=== PATIENT | female | born 1955 | race Caucasian/White ===

== ENCOUNTER → 2019-11-23 | Outpatient (CLI) | payer MEDICARE | END | disposition home or self-care (01) | LOC: LABPAT 14:12 | PROVIDERS: ATTEND Orthopaedic Surgery Sports Medicine | DX: Z01.812 Encounter for preprocedural laboratory examination (principal) | CPT/HCPCS: 87070 ==

== ENCOUNTER → 2019-12-01 | Outpatient (CLI) | payer MEDICARE ==
[2019-12-01 15:03] LABS: HCT 45.5 % (34.0-46.0); HGB 14.9 gm/dL (11.4-16.0); MCH 30.4 pg (25.0-35.0); MCHC 32.8 g/dL (31.0-37.0); MCV 92.7 fL (80.0-100.0); Mean Platelet Volume 8.4; Platelet Count 253 k/uL (150-450); RBC 4.91 m/uL (3.80-5.40); RDW 12.5 % (11.5-15.5); WBC 8.1 k/uL (3.8-10.6)
[2019-12-01 15:12] LABS: Albumin 4.6 g/dL (3.5-5.0); Calcium 9.7 mg/dL (8.4-10.2); Potassium 4.3 mmol/L (3.5-5.1); Total Bilirubin 1.1 mg/dL (0.2-1.3); Total Protein 7.6 g/dL (6.3-8.2)
[2019-12-01 16:02] LABS: Partial Thromboplastin Time 23.7 sec (22.0-30.0); Prothrombin Time 10.2 sec (9.0-12.0)
[2019-12-01 19:49] LABS: Appearance,Urine Cloudy (Clear); Bacteria,Urine Rare /hpf; Bilirubin,Urine Negative (Negative); Blood,Urine Negative (Negative); Color,Urine Yellow; Glucose,Urine (UA) Negative (Negative); Ketones,Urine Negative (Negative); Leukocyte Esterase,Urine Small (Negative); Mucus,Urine Rare /hpf; Nitrite,Urine Negative (Negative); Protein,Urine Negative (Negative); Specific Gravity,Urine 1.012 (1.001-1.035); Squamous Epithelial Cell,Urine 6 /hpf (0-4); Urobilinogen,Urine <2.0 mg/dL (<2.0); WBC,Urine 1 /hpf (0-5)
== END | disposition home or self-care (01) ==
LOC: LABWHC1 14:20
PROVIDERS: ATTEND Orthopaedic Surgery Sports Medicine
DX: Z01.818 Encounter for other preprocedural examination (principal); Z01.812 Encounter for preprocedural laboratory examination; Z51.81 Encounter for therapeutic drug level monitoring; Z79.01 Long term (current) use of anticoagulants
CPT/HCPCS: 36415; 80053; 81001; 85027; 85610; 85730; 93005

== ENCOUNTER → 2020-07-24 | Outpatient (CLI) | payer MEDICARE ==
[2020-07-24 11:48] LABS: HGB 14.3 gm/dL (11.4-16.0); MCHC 32.4 g/dL (31.0-37.0); MCV 95.6 fL (80.0-100.0); Mean Platelet Volume 8.2; Platelet Count 270 k/uL (150-450); RDW 13.1 % (11.5-15.5); WBC 8.6 k/uL (3.8-10.6)
[2020-07-24 11:57] LABS: ALT 31 U/L (4-34); AST 36 U/L (14-36); African American GFR (CKD) >90 (>60 ml/min/1.73 sqM); Albumin 4.7 g/dL (3.5-5.0); Alkaline Phosphatase 88 U/L (38-126); Anion Gap 6 mmol/L; Blood Urea Nitrogen 16 mg/dL (7-17); Calcium 9.7 mg/dL (8.4-10.2); Carbon Dioxide 34 mmol/L (22-30); Chloride 100 mmol/L (98-107); Glucose 105 mg/dL (74-99); Non-African American GFR(CKD) 88 (>60 ml/min/1.73 sqM); Potassium 4.1 mmol/L (3.5-5.1); Sodium 140 mmol/L (137-145); Total Bilirubin 1.3 mg/dL (0.2-1.3); Total Protein 7.7 g/dL (6.3-8.2)
[2020-07-24 12:08] LABS: Appearance,Urine Cloudy (Clear); Bacteria,Urine Rare /hpf; Bilirubin,Urine Negative (Negative); Blood,Urine Negative (Negative); Color,Urine Light Yellow; Glucose,Urine (UA) Negative (Negative); Ketones,Urine Negative (Negative); Leukocyte Esterase,Urine Large (Negative); Mucus,Urine Rare /hpf; Nitrite,Urine Positive (Negative); PH, Urine 7.5 (5.0-8.0); Protein,Urine Negative (Negative); RBC,Urine 1 /hpf (0-5); Specific Gravity,Urine 1.013 (1.001-1.035); Squamous Epithelial Cell,Urine 5 /hpf (0-4); Urobilinogen,Urine <2.0 mg/dL (<2.0); WBC,Urine 23 /hpf (0-5)
[2020-07-24 12:19] LABS: Partial Thromboplastin Time 25.1 sec (22.0-30.0); Prothrombin Time 10.5 sec (9.0-12.0)
== END | disposition home or self-care (01) ==
LOC: LABPAT 09:58
PROVIDERS: ATTEND Orthopaedic Surgery Sports Medicine
DX: Z01.818 Encounter for other preprocedural examination (principal); Z01.812 Encounter for preprocedural laboratory examination
CPT/HCPCS: 80053; 81001; 85027; 85610; 85730; 87070; 93005

== ENCOUNTER 2020-08-08 23:21 | Observation (INO) | payer MEDICARE, OTHER ==
[2020-08-08] MEDS ORDERED: MORPHINE SULFATE 2 MG/ML SYRINGE IVP STA (23:36)
--- NOTE | 2020-08-08 23:47 | ED ---
Chest Pain HPI - General Chief Complaint: Chest Pain Stated Complaint: Chest Pain Time Seen by Provider: 08/08/20 23:30 Source: patient Mode of arrival: wheelchair Limitations: no limitations - History of Present Illness Initial Comments: this patient is a 65-year-old woman who presents to be evaluated for chest pain. She indicates the substernal area and states that it is also on her back across the scapula. Patient states that it came on about 90 minutes ago while she was sitting and watching television. There was no injury. She states that it is somewhat burning in character at times sharp. It is constant and moderate intensity. She has not noted worsening or relieving factors. No associated symptoms. MD Complaint: chest pain Onset/Timin -: minutes(s) Onset: during rest Pain Location: substernal Pain Radiation: back Severity: moderate Quality: other (burning) Consistency: constant Improves With: nothing Worsens With: nothing Treatments Prior to Arrival: none - Related Data Home Medications Medication Instructions Recorded Confirmed Cannabidiol (Cbd) [Epidiolex] 1 dose PO DIRECTED PRN 08/03/20 08/03/20 Citalopram Hydrobromide 20 mg PO DAILY 08/03/20 08/03/20 [Citalopram HBr] Ibuprofen 400 mg PO Q8H PRN 08/03/20 08/03/20 Omeprazole Magnesium [PriLOSEC OTC] 20 mg PO DIRECTED PRN 08/03/20 08/03/20 Pravastatin Sodium [Pravachol] 40 mg PO HS 08/03/20 08/03/20 Triamterene/Hydrochlorothiazid 1 each PO DAILY 08/03/20 08/03/20 [Triamterene-Hctz 75-50 mg Tab] amLODIPine [Norvasc] 5 mg PO DAILY 08/03/20 08/03/20 traMADol HCL [Ultram] 50 mg PO Q6HR PRN 08/03/20 08/03/20 Allergies Allergy/AdvReac Type Severity Reaction Status Date / Time No Known Allergies Allergy Verified 08/08/20 23:25 Review of Systems ROS Statement: Those systems with pertinent positive or pertinent negative responses have been documented in the HPI. ROS Other: All systems not noted in ROS Statement are negative. Constitutional: Denies: fever, chills Respiratory: Denies: cough, dyspnea Cardiovascular: Reports: as per HPI, chest pain. Denies: palpitations, orthopnea, edema, syncope Gastrointestinal: Denies: abdominal pain, nausea, vomiting Genitourinary: Denies: dysuria, frequency, hematuria Musculoskeletal: Reports: back pain Skin: Denies: rash Neurological: Denies: headache, weakness, numbness EKG Findings - EKG Results: EKG: interpreted by ERMD, sinus rhythm (rate 72 bpm), normal axis, normal QRS - Blocks, Odell, Hypertrophy, ST Abn: Repolarization changes or abnormalities: nonspecific abnormality, ST segment, and/or T wave Past Medical History Past Medical History: No Reported History History of Any Multi-Drug Resistant Organisms: None Reported Past Surgical History: Appendectomy, Cholecystectomy, Orthopedic Surgery, Tonsillectomy, Tubal Ligation Additional Past Surgical History / Comment(s): eye surgery Past Psychological History: No Psychological Hx Reported Smoking Status: Never smoker Past Alcohol Use History: Daily Past Drug Use History: None Reported General Exam Limitations: no limitations General appearance: alert, in no apparent distress Head exam: Present: atraumatic, normocephalic Eye exam: Present: normal appearance. Absent: scleral icterus, conjunctival injection ENT exam: Present: normal oropharynx Neck exam: Present: normal inspection Respiratory exam: Present: normal lung sounds bilaterally. Absent: respiratory distress, wheezes, rales, rhonchi, stridor Cardiovascular Exam: Present: regular rate, normal rhythm, normal heart sounds. Absent: systolic murmur, diastolic murmur, rubs, gallop GI/Abdominal exam: Present: soft. Absent: distended, tenderness, guarding, rebound, rigid, mass Extremities exam: Present: normal inspection, normal capillary refill. Absent: pedal edema, calf tenderness Back exam: Present: normal inspection. Absent: CVA tenderness (R), CVA tenderness (L) Neurological exam: Present: alert Skin exam: Present: warm, dry, intact, normal color. Absent: rash Course Vital Signs 08/08/20 08/09/20 08/09/20 23:22 00:00 01:00 Temperature 98.5 F Pulse Rate 78 71 70 Respiratory 18 16 16 Rate Blood Pressure 159/90 135/68 132/66 O2 Sat by Pulse 99 96 96 Oximetry Disposition Clinical Impression: Chest pain Disposition: ADMITTED IP TO THIS HOSP Condition: Good Instructions (If sedation given, give patient instructions): Chest Pain (ED) Referrals: Navarro Rhodes DO [Primary Care Provider] - 1-2 days
[2020-08-09 00:01] LABS: Basophils # (A) 0.1 k/uL (0-0.2); Basophils % (A) 1 %; Eosinophils # (A) 0.1 k/uL (0-0.7); Eosinophils % (A) 1 %; HCT 41.7 % (34.0-46.0); HGB 13.9 gm/dL (11.4-16.0); Lymphocytes # (A) 1.5 k/uL (1.0-4.8); Lymphocytes % (A) 12 %; MCH 31.4 pg (25.0-35.0); MCHC 33.4 g/dL (31.0-37.0); MCV 93.9 fL (80.0-100.0); Monocytes # (A) 0.7 k/uL (0-1.0); Monocytes % (A) 5 %; Neutrophils # (A) 10.7 k/uL (1.3-7.7); Neutrophils % (A) 81 %; Platelet Count 255 k/uL (150-450); RBC 4.44 m/uL (3.80-5.40); RDW 12.8 % (11.5-15.5); WBC 13.3 k/uL (3.8-10.6)
--- NOTE | 2020-08-09 00:03 | XR ---
EXAMINATION TYPE: XR chest 2V DATE OF EXAM: 08/08/2020 COMPARISON: NONE HISTORY: Chest pain TECHNIQUE: FINDINGS: Heart and mediastinum are normal. Lungs are clear. Diaphragm is normal. Bony thorax appears normal there are chest leads. IMPRESSION: Normal chest.
[2020-08-09 00:12] LABS: Albumin 4.5 g/dL (3.5-5.0); Calcium 9.6 mg/dL (8.4-10.2); Magnesium 1.9 mg/dL (1.6-2.3); Potassium 3.4 mmol/L (3.5-5.1); Total Bilirubin 0.7 mg/dL (0.2-1.3); Total Protein 7.5 g/dL (6.3-8.2)
[2020-08-09 00:38] LABS: Prothrombin Time 10.5 sec (9.0-12.0)
[2020-08-09] MEDS ORDERED: NITROGLYCERIN SL TABS 0.4 MG TAB SUBLINGUAL PRN ×2 (01:07→12:09)
[2020-08-09] MEDS ORDERED: SODIUM CHLORIDE 0.9% 500 ML 500 ML IV STA (01:09)
[2020-08-09] MEDS ORDERED: POTASSIUM CHLORIDE 10 MEQ in WATER FOR INJECTION 1 100ML.BAG IVPB ONE (01:30)
[2020-08-09] MEDS: SODIUM CHLORIDE 0.9% 1,000 ML IV SCH ×2 (01:52→18:11)
[2020-08-09] MEDS ORDERED: POTASSIUM CHLORIDE ER 20 MEQ TAB.ER PO STA (02:28)
--- NOTE | 2020-08-09 02:30 | P.HPIM ---
History of Present Illness H&P Date: 08/09/20 Patient is a 65-year-old female with a PMH of hypertension and anxiety disorder with history of panic attacks, and osteoarthritis who presented to the emergency room with chest pain. The patient notes that she was in her usual state of health until about 8 PM last night when she suddenly developed substernal tight sensation along with a tightening along her shoulder blades bilaterally all she was at home sitting on a couch watching television. The pain was constant, and gradually worsened until maximum intensity of 8 out of 10 with associated nausea. The pain did get worse with deep breaths. The pain gradually improved while in route to the hospital. Denied associated shortness of breath, diaphoresis, or dizziness. Reports no prior history of such discomfort. At time of interview, the patient notes that her pain has essentially resolved. Denied leg pain or lower extremity swelling. Patient notes that this may have been a panic attack though states that the pain was somewhat different from her previous episodes. Chest x-ray was unremarkable. EKG revealed normal sinus rhythm at [address]/T-wave changes noted as reviewed by me. Laboratory evaluation revealed a WBC count of 13.3, sodium 136, potassium 3.4, BUN 24, creatinine 0.81, glucose 118, troponin less than 0.012. Of note, the patient is scheduled to undergo a right knee replacement today at 7 AM. Review of Systems Pertinent positives and negatives as discussed in HPI, a complete review of systems was performed and all other systems are negative. Past Medical History Past Medical History: No Reported History History of Any Multi-Drug Resistant Organisms: None Reported Past Surgical History: Appendectomy, Cholecystectomy, Orthopedic Surgery, Tonsillectomy, Tubal Ligation Additional Past Surgical History / Comment(s): eye surgery Past Psychological History: No Psychological Hx Reported Smoking Status: Never smoker Past Alcohol Use History: Daily Past Drug Use History: None Reported Medications and Allergies Home Medications Medication Instructions Recorded Confirmed Type Cannabidiol (Cbd) [Epidiolex] 1 dose PO DIRECTED PRN 08/03/20 08/03/20 History Citalopram Hydrobromide 20 mg PO DAILY 08/03/20 08/03/20 History [Citalopram HBr] Ibuprofen 400 mg PO Q8H PRN 08/03/20 08/03/20 History Omeprazole Magnesium [PriLOSEC OTC] 20 mg PO DIRECTED PRN 08/03/20 08/03/20 History Pravastatin Sodium [Pravachol] 40 mg PO HS 08/03/20 08/03/20 History Triamterene/Hydrochlorothiazid 1 each PO DAILY 08/03/20 08/03/20 History [Triamterene-Hctz 75-50 mg Tab] amLODIPine [Norvasc] 5 mg PO DAILY 08/03/20 08/03/20 History traMADol HCL [Ultram] 50 mg PO Q6HR PRN 08/03/20 08/03/20 History Allergies Allergy/AdvReac Type Severity Reaction Status Date / Time No Known Allergies Allergy Verified 08/08/20 23:25 Physical Exam Vitals: Vital Signs Temp Pulse Resp BP Pulse Ox 08/09/20 01:36 98.1 F 71 16 141/75 96 08/09/20 01:00 70 16 132/66 96 08/09/20 00:00 71 16 135/68 96 08/08/20 23:22 98.5 F 78 18 159/90 99 Intake and Output 08/08/20 08/08/20 08/09/20 14:59 22:59 06:59 Other: Weight 83.915 kg General: non toxic, no distress, appears at stated age, overweight Derm: no unusual rashes/lesions no unusual ecchymoses, warm, dry Head: atraumatic, normocephalic, symmetric Eyes: EOMI, no lid lag, anicteric sclera, pupils equal round reactive to light ENT: Nose and ears atraumatic, no thrush, no pharyngeal erythema Neck: No thyromegaly, no cervical lymphadenopathy, trachea midline, supple Mouth: no lip lesion, mucus membranes moist Cardiovascular: S1S2 reg, no murmur, positive posterior tibial pulse bilateral, no edema, capillary refill less than 2 seconds, no chest wall tenderness on palpation Lungs: CTA bilateral, no rhonchi, no rales , no accessory muscle use Abdominal: soft, nontender to palpation, no guarding, no appreciable organomegaly, normal bowel sounds Ext: no gross muscle atrophy, muscle strength 5 out of 5 in all 4 extremities grossly, no contractures, Neuro: CN II-XI grossly intact, light touch intact all 4 extremities, finger to nose within normal limits, Psych: Alert, oriented, appropriate affect Results CBC & Chem 7: 08/08/20 23:41 08/08/20 23:41 Labs: Abnormal Lab Results - Last 24 Hours (Table) 08/08/20 08/08/20 Range/Units 23:41 23:41 WBC 13.3 H (3.8-10.6) k/uL Neutrophils # 10.7 H (1.3-7.7) k/uL Sodium 136 L (137-145) mmol/L Potassium 3.4 L (3.5-5.1) mmol/L BUN 24 H (7-17) mg/dL Glucose 118 H (74-99) mg/dL Assessment and Plan Plan: Chest pain, rule out ACS -The patient refused Aspirin in anticipation of her knee surgery -Discussed with the patient in great detail regarding the importance of aspirin in the event that she is having an acute coronary syndrome -The patient verbalized understanding of the risks and noted that she does not wish to reschedule her surgery and thereby does not wish to take aspirin -Explained to the patient that she may very well not be able to undergo the surgery since she is unlikely to be evaluated and cleared by cardiology prior to her scheduled time of 7 AM -Cardiac monitoring -Cardiology consult -Trend troponin Hypokalemia -Replace and monitor Leukocytosis -No signs of active infection at this time -Likely due to acute stress -Monitor for now Chronic conditions: Hypertension -Continue with home antihypertensives Right knee osteoarthritis, scheduled for total knee replacement today at 7 AM -Orthopedic surgeon notified DVT prophylaxis -IPCDs The patient is admitted with an anticipated less than 2 midnight stay for evaluation of chest pain CODE STATUS: Full Code Discussed with: Patient Anticipated discharge date: in am Anticipated discharge place: home A total of 40 minutes was spent on the care of this complex patient more than 50% of the time was spent in counseling and care coordination.
[2020-08-09 04:01] LABS: HCT 39.4 % (34.0-46.0); HGB 12.4 gm/dL (11.4-16.0); MCH 30.5 pg (25.0-35.0); MCHC 31.5 g/dL (31.0-37.0); MCV 96.7 fL (80.0-100.0); Mean Platelet Volume 8.1; Platelet Count 240 k/uL (150-450); RBC 4.08 m/uL (3.80-5.40); RDW 13.4 % (11.5-15.5)
[2020-08-09 04:14] LABS: African American GFR (CKD) >90 (>60 ml/min/1.73 sqM); Anion Gap 7 mmol/L; Blood Urea Nitrogen 23 mg/dL (7-17); Calcium 8.9 mg/dL (8.4-10.2); Carbon Dioxide 28 mmol/L (22-30); Chloride 101 mmol/L (98-107); Glucose 108 mg/dL (74-99); Non-African American GFR(CKD) 85 (>60 ml/min/1.73 sqM); Potassium 3.9 mmol/L (3.5-5.1); Sodium 136 mmol/L (137-145)
[2020-08-09] MEDS ORDERED: LACTATED RINGERS 1,000 ML BAG IV ONE (06:22)
[2020-08-09] MEDS ORDERED: MELOXICAM 7.5 MG TAB ONE (06:22)
[2020-08-09] MEDS ORDERED: DEXAMETHASONE SOD PHOSPHATE 10 MG/ML 1 ML VIAL ONE (06:22)
[2020-08-09] MEDS ORDERED: ONDANSETRON 4 MG/2 ML VIAL ONE (06:22)
[2020-08-09] MEDS ORDERED: ACETAMINOPHEN TAB 500 MG TAB ONE (06:22)
[2020-08-09] MEDS ORDERED: REGADENOSON 0.4 MG/5 ML SYRINGE IV ONE (09:11)
[2020-08-09] MEDS ORDERED: AMINOPHYLLINE 500 MG/20 ML VIAL IV PRN (09:11)
[2020-08-09] MEDS ORDERED: CAFFEINE CITRATE 60 MG/3 ML VIAL IV PRN (09:11)
[2020-08-09] MEDS ORDERED: PANTOPRAZOLE 40 MG TABLET PO PRN (09:42)
--- NOTE | 2020-08-09 09:44 | P.CRDCN ---
History of Present Illness Consult date: 08/09/20 History of present illness: CHIEF COMPLAINT: Chest pain HISTORY OF PRESENT ILLNESS: This is a 65-year old female with a past medical history significant for hypertension, hyperlipidemia, anxiety, and osteoarthritis. 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 We have been asked to see the patient in consultation for chest pain. Patient was scheduled for a right total knee arthroplasty this morning. She reports that she began having chest pain around 8 PM last night. She believes her chest pain was due to her anxiety. She states she began having midsternal discomfort that went into her back and between her shoulder blades. She reports tingling down the left arm. She also reports nausea. She reports having a stress test many years ago and states it was negative to her knowledge. She reports her dad had a history of heart disease but is unsure exactly what type of cardiac problems he had. DIAGNOSTICS: EKG reveals sinus rhythm without signs of acute ischemia. Chest xray negative for acute process Laboratory data: WBC 13.0. Hemoglobin 12.4. Platelet count 240. Sodium 136. Potassium 3.9. BUN 23. Creatinine 0.74. Magnesium 1.9. Troponin negative 3 Current home cardiac medications include Norvasc 5 mg daily, Triamterene-HCTZ 75-50mg daily, pravastatin 40 mg daily REVIEW OF SYSTEMS: At the time of my exam: CONSTITUTIONAL: Denies fever or chills. HEENT: Denies blurred vision, vision changes, or eye pain. Denies hemoptysis CARDIOVASCULAR: Denies chest pain, orthopnea, PND or palpitations RESPIRATORY: No shortness of breath. GASTROINTESTINAL: Denies abdominal pain. Denies nausea or vomiting. HEMATOLOGIC: Denies bleeding disorders. GENITOURINARY: Denies any blood in urine. SKIN: Denies pruitis. Denies rash. PHYSICAL EXAM: VITAL SIGNS: Reviewed. GENERAL: Well-developed in no acute distress. HEENT: Head is normocephalic. Pupils are equal, round. Sclerae anicteric. Mucous membranes of the mouth are moist. Neck supple. No JVD or thyromegaly LUNGS: Respirations even and unlabored. Lungs essentially clear to auscultation bilaterally. HEART: Regular rate and rhythm. S1 and S2 heard. Systolic murmur noted ABDOMEN: Soft. Nondistended. Nontender. EXTREMITIES: Normal range of motion. No clubbing or cyanosis. Peripheral pulses intact. No lower extremity edema NEUROLOGIC: Awake and alert. Oriented x 3. ASSESSMENT: Chest pain Hypertension Hyperlipidemia Osteoarthritis, scheduled for right total knee arthroplasty PLAN: An acute coronary event has been ruled out Resume home cardiac medications Obtain 2-D echo to assess cardiac structure and function Patient to undergo Lexiscan stress test to assess for reversible ischemia Nurse practitioner note has been reviewed by physician. Signing provider agrees with the documented findings, assessment, and plan of care. Past Medical History Past Medical History: No Reported History History of Any Multi-Drug Resistant Organisms: None Reported Past Surgical History: Appendectomy, Cholecystectomy, Orthopedic Surgery, Tonsillectomy, Tubal Ligation Additional Past Surgical History / Comment(s): eye surgery Past Psychological History: No Psychological Hx Reported Smoking Status: Never smoker Past Alcohol Use History: Daily Past Drug Use History: None Reported Medications and Allergies Home Medications Medication Instructions Recorded Confirmed Type Citalopram Hydrobromide 20 mg PO HS 08/03/20 08/09/20 History [Citalopram HBr] Omeprazole Magnesium [PriLOSEC OTC] 20 mg PO BID PRN 08/03/20 08/09/20 History Pravastatin Sodium [Pravachol] 40 mg PO HS 08/03/20 08/09/20 History Triamterene/Hydrochlorothiazid 1 tab PO DAILY 08/03/20 08/09/20 History [Triamterene-Hctz 75-50 mg Tab] amLODIPine [Norvasc] 5 mg PO DAILY 08/03/20 08/09/20 History traMADol HCL [Ultram] 50 mg PO Q6HR PRN 08/03/20 08/09/20 History Allergies Allergy/AdvReac Type Severity Reaction Status Date / Time No Known Allergies Allergy Verified 08/09/20 07:38 Physical Exam Vitals: Vital Signs Temp Pulse Pulse Resp BP BP Pulse Ox 08/09/20 09:00 56 L 16 08/09/20 08:05 97.9 F 56 L 16 120/79 95 08/09/20 02:28 97.9 F 66 16 123/71 95 08/09/20 02:27 95 08/09/20 01:36 98.1 F 71 16 141/75 96 08/09/20 01:00 70 16 132/66 96 08/09/20 00:00 71 16 135/68 96 10/28/20 23:22 98.5 F 78 18 159/90 99 Intake and Output 08/08/20 08/09/20 08/09/20 22:59 06:59 14:59 Other: Voiding Method Toilet Toilet # Voids 1 Weight 83.915 kg Results 08/09/20 03:06 08/09/20 03:06 Cardiac Enzymes 08/08/20 08/08/20 08/09/20 Range/Units 23:41 23:41 03:06 AST 33 (14-36) U/L Troponin I <0.012 <0.012 (0.000-0.034) ng/mL 08/09/20 Range/Units 07:43 AST (14-36) U/L Troponin I <0.012 (0.000-0.034) ng/mL Coagulation 08/08/20 Range/Units 23:41 PT 10.5 (9.0-12.0) sec APTT 25.0 (22.0-30.0) sec CBC 08/08/20 08/09/20 Range/Units 23:41 03:06 WBC 13.3 H 13.0 H (3.8-10.6) k/uL RBC 4.44 4.08 (3.80-5.40) m/uL Hgb 13.9 12.4 (11.4-16.0) gm/dL Hct 41.7 39.4 (34.0-46.0) % Plt Count 255 240 (150-450) k/uL Comprehensive Metabolic Panel 08/08/20 08/09/20 Range/Units 23:41 03:06 Sodium 136 L 136 L (137-145) mmol/L Potassium 3.4 L 3.9 (3.5-5.1) mmol/L Chloride 101 101 (98-107) mmol/L Carbon Dioxide 27 28 (22-30) mmol/L BUN 24 H 23 H (7-17) mg/dL Creatinine 0.81 0.74 (0.52-1.04) mg/dL Glucose 118 H 108 H (74-99) mg/dL Calcium 9.6 8.9 (8.4-10.2) mg/dL AST 33 (14-36) U/L ALT 27 (4-34) U/L Alkaline Phosphatase 90 (38-126) U/L Total Protein 7.5 (6.3-8.2) g/dL Albumin 4.5 (3.5-5.0) g/dL Current Medications Generic Name Dose Route Start Last Admin Trade Name Freq PRN Reason Stop Dose Admin Aminophylline 100 mg 08/09/20 09:11 Aminophylline 500 Mg/20 Ml Vial IV 08/09/20 23:00 ONCE PRN Patient Response Amlodipine Besylate 5 mg 08/09/20 09:00 Amlodipine 5 Mg Tab PO DAILY JOSELUIS Caffeine Citrate 60 mg 08/09/20 09:11 Caffeine Citrate 60 Mg/3 Ml Vial IV 08/09/20 23:00 ONCE PRN Patient Response Sodium Chloride 1,000 mls @ 100 mls/hr 08/09/20 01:15 08/09/20 01:52 Saline 0.9% IV 100 mls/hr .Q10H JOSELUIS Administration Nitroglycerin 0.4 mg 08/09/20 01:07 Nitroglycerin Sl Tabs 0.4 Mg Tab SUBLINGUAL Q5M PRN Chest Pain Pravastatin Sodium 40 mg 08/09/20 21:00 Pravastatin Sodium 40 Mg Tab PO HS JOSELUIS Triamterene/HCTZ 1 each 08/09/20 09:00 Triamterene-Hctz 75-50mg 1 Each Tab PO DAILY JOSELUIS Intake and Output 08/08/20 08/09/20 08/09/20 22:59 06:59 14:59 Other: Voiding Method Toilet Toilet # Voids 1 Weight 83.915 kg 08/09/20 03:06 08/09/20 03:06
[2020-08-09] MEDS: amLODIPine 5 MG TAB PO SCH (09:50)
[2020-08-09] MEDS: TRIAMTERENE-HCTZ 75-50MG 1 EACH TAB PO SCH (09:50)
--- NOTE | 2020-08-09 11:00 | ECHOF ---
Referral Reason:chest pain MEASUREMENTS -------- HEIGHT: 170.2 cm WEIGHT: 83.9 kg BP: RVIDd: 3.0 cm (< 3.3) IVSd: 1.2 cm (0.6 - 1.1) LVIDd: 3.9 cm (3.9 - 5.3) LVPWd: 1.0 cm (0.6 - 1.1) IVSs: 1.6 cm LVIDs: 2.4 cm LVPWs: 1.3 cm LA Diam: 3.4 cm (2.7 - 3.8) LAESV Index (A-L): 30.87 ml/m Ao Diam: 3.0 cm (2.0 - 3.7) AV Cusp: 1.7 cm (1.5 - 2.6) MV EXCURSION: 12.451 mm (> 18.000) MV EF SLOPE: 88 mm/s (70 - 150) EPSS: 0.4 cm MV E Feliciano: 0.88 m/s MV DecT: 220 ms MV A Feliciano: 0.82 m/s MV E/A Ratio: 1.07 RAP: 5.00 mmHg RVSP: 22.12 mmHg FINDINGS -------- Sinus rhythm. This was a technically good study. The left ventricular size is normal. There is borderline concentric left ventricular hypertrophy. Overall left ventricular systolic function is normal with, an EF between 60 - 65 %. The right ventricle is normal in size. LA is midly dilated 29-33ml/m2. The right atrium is normal in size. Interatrial and interventricular septum intact. The aortic valve is trileaflet and appears structurally normal. There is trace to mild mitral regurgitation. Mild tricuspid regurgitation present. Right ventricular systolic pressure is normal at < 35 mmHg. There is no pulmonic regurgitation present. The aortic root size is normal. Normal inferior vena cava with normal inspiratory collapse consistent with estimated right atrial pre ssure of 5 mmHg. There is no pericardial effusion. CONCLUSIONS -------- 1. The left ventricular size is normal. 2. There is borderline concentric left ventricular hypertrophy. 3. Overall left ventricular systolic function is normal with, an EF between 60 - 65 %. 4. LA is midly dilated 29-33ml/m2. 5. There is trace to mild mitral regurgitation. 6. Mild tricuspid regurgitation present. 7. There is no pericardial effusion. COIL CLEANER: Angela Chavez RDCS
--- NOTE | 2020-08-09 11:08 | P.STRESS ---
- Stress Test Note Stress Test Results/Findings: Exam Performed: NM stress lexiscan cardiolite Exam Date: 08/09/20 Reason for Exam: CHEST PAIN Height: 5 ft 7 in Weight: 83.91 kg Protocol: LEXISCAN Stage: NA Duration of Exercise: NA Resting Heart Rate: 59 Resting Blood Pressure: 116/63 Maximum Achieved Heart Rate: 74 Maximum Achieved Blood Pressure: 116/63 85% PMHR: NA 100% PMHR: NA METS: NA Technologist Comment: Stress Test Results/Findings: This is a 65-year-old female who was admitted to the hospital with complaints of chest pain and shortness of breath and also palpitations. Troponins have been negative. Stress data: Baseline EKG showed sinus rhythm with normal MD interval and QRS duration. Blood pressure at rest is 116/63 with pulse rate of 59. A standard dose of Lexiscan was infused. EKG taken during and after infusion did not reveal any changes of ischemia. Final impression: #1. Negative Lexiscan stress test #2. Report on the nuclear images to be given by the radiologist.
--- NOTE | 2020-08-09 11:46 | NM ---
EXAMINATION TYPE: NM stress lexiscan cardiolite DATE OF EXAM: 08/09/2020 COMPARISON: NONE HISTORY: 65-year-old female with chest pain TECHNIQUE: After the intravenous administration of 10.32 mCi Tc 99m Sestamibi - Cardiolite resting S PECT images acquired 60 minutes post injection. The patient received 0.4mg Lexiscan, 25.7 mCi Tc 99m Sestamibi - Stress images obtained [address] injection FINDINGS: Review of stress and rest SPECT images demonstrates a small area of decreased perfusion along the mid to apical inferolateral wall. Polar maps suggests a corresponding area of reversibility. Gated jon sis shows normal wall motion with an estimated left ventricular ejection fraction of 67 %. TID is up per limits of normal at 1.1. IMPRESSION: Findings suggest a small area of reversibility along the mid to apical inferolateral wall.
[2020-08-09] MEDS ORDERED: ALPRAZolam 0.5 MG TAB PO PRN (12:09)
[2020-08-09] MEDS ORDERED: ALPRAZolam 0.25 MG TAB PO PRN (12:09)
--- NOTE | 2020-08-09 12:31 | ECHOS ---
Stress Test Results/Findings: Exam Performed: NM stress lexiscan cardiolite Exam Date: 08/09/20 Reason for Exam: CHEST PAIN Height: 5 ft 7 in Weight: 83.91 kg Protocol: LEXISCAN Stage: NA Duration of Exercise: NA Resting Heart Rate: 59 Resting Blood Pressure: 116/63 Maximum Achieved Heart Rate: 74 Maximum Achieved Blood Pressure: 116/63 85% PMHR: NA 100% PMHR: NA METS: NA Technologist Comment: Stress Test Results/Findings: This is a 65-year-old female who was admitted to the hospital with complaints of chest pain and shortness of breath and also palpitations. Troponins have been negative. Stress data: Baseline EKG showed sinus rhythm with normal CT interval and QRS duration. Blood pressure at rest is 116/63 with pulse rate of 59. A standard dose of Lexiscan was infused. EKG taken during and after infusion did not reveal any changes of ischemia. Final impression: #1. Negative Lexiscan stress test #2. Report on the nuclear images to be given by the radiologist. AMALIA
--- NOTE | 2020-08-09 12:39 | P.PN ---
Subjective Progress Note Date: 08/09/20 (delayed charting seen at 0945) Principal diagnosis: chest pain Patient is a 65-year-old female with a past medical history of hypertension, anxiety disorder with panic attacks, and osteoarthritis who presented to the emergency room with chest pain. She was supposed to undergo elective total knee arthroplasty on 08/09. In the ER she underwent an extensive evaluation. On arrival she was slightly hypertensive with a blood pressure 159/90. Initial laboratory analysis showed with a cold, 13.3, sodium 136, potassium 3.4, BUN 24, and glucose of 118. Initial troponin was negative and EKG appeared nonischemic. Chest x-ray showed no acute process. She was noted to have an aspirin but she refused due to her possible knee surgery. Her potassium was replaced and she started on IV fluids. She was placed in observation for chest pain. The remainder of her troponins were negative. She was seen by cardiology on 08/09 and subsequently underwent a Lexiscan stress test which showed small area of reversibility along the mid to apical inferior lateral wall. Echocardiogram demonstrated an ejection fraction of 60-65% with mild MR and TR and no pericardial effusion. Patient seen and examined at bedside. She is pain-free. Denies any nausea or vomiting. No shortness of breath. Objective - Vital Signs Vital signs: Vital Signs Temp 97.9 F 08/09/20 08:05 Pulse 56 L 08/09/20 09:00 Resp 16 08/09/20 09:00 BP 120/79 08/09/20 08:05 Pulse Ox 95 08/09/20 08:05 Intake & Output 08/08/20 08/09/20 08/09/20 18:59 06:59 18:59 Weight 83.915 kg 83.91 kg Other: Voiding Method Toilet Toilet # Voids 1 - Exam General: non toxic, no distress, appears at stated age Derm: warm, dry Head: atraumatic, normocephalic, symmetric Eyes: EOMI, no lid lag, anicteric sclera Mouth: no lip lesion, mucus membranes moist Cardiovascular: S1S2 reg, no murmur, positive posterior tibial pulse bilateral, Lungs: CTA bilateral, no rhonchi, no rales , no accessory muscle use Abdominal: soft, nontender to palpation, no guarding, no appreciable organo megaly Ext: no gross muscle atrophy, no edema, no contractures Neuro: CN II-XI grossly intact, no focal neuro deficits Psych: Alert, oriented, appropriate affect - Labs CBC & Chem 7: 08/09/20 03:06 08/09/20 03:06 Labs: Abnormal Lab Results - Last 24 Hours (Table) 08/08/20 08/08/20 08/09/20 Range/Units 23:41 23:41 03:06 WBC 13.3 H 13.0 H (3.8-10.6) k/uL Neutrophils # 10.7 H (1.3-7.7) k/uL Sodium 136 L (137-145) mmol/L Potassium 3.4 L (3.5-5.1) mmol/L BUN 24 H (7-17) mg/dL Glucose 118 H (74-99) mg/dL 08/09/20 Range/Units 03:06 WBC (3.8-10.6) k/uL Neutrophils # (1.3-7.7) k/uL Sodium 136 L (137-145) mmol/L Potassium (3.5-5.1) mmol/L BUN 23 H (7-17) mg/dL Glucose 108 H (74-99) mg/dL Assessment and Plan Assessment: Chest pain, possible acute coronary syndrome -Patient did have a positive Lexiscan stress test. Discussed with cardiology and plan is for heart cath in a.m. -Recommend aspirin daily. Osteoarthritis -Will need to delay the surgery until chest pain is clearly evaluated. -Continue to follow blood pressures Elevated blood pressure without history of hypertension -Continue to follow blood pressures Leukocytosis -Suspect reactive -Chest x-ray is negative -No signs or symptoms of urinary tract infection -Repeat CBC in a.m. Hypokalemia - resolved DVT prophylaxis: SCDs Discussed with: patient, nursing, Siria Kapadia NP Anticipated discharge: 1-[address]: home A total of 35 minutes was spent on the care of this complex patient more than 50% of the time was spent in counseling and care coordination.
[2020-08-09] MEDS ORDERED: ACETAMINOPHEN TAB 325 MG TAB PO PRN (15:44)
[2020-08-09] MEDS ORDERED: ONDANSETRON 4 MG/2 ML VIAL IVP PRN (15:44)
[2020-08-09] MEDS ORDERED: SODIUM CHLORIDE 0.9% 1,000 ML in EMPTY BAG 1 BAG IV ONE (18:00)
[2020-08-09] MEDS ORDERED: PRAVASTATIN SODIUM 40 MG TAB PO SCH (21:00)
[2020-08-09] MEDS ORDERED: CITALOPRAM HYDROBROMIDE 20 MG TAB PO SCH (21:00)
[2020-08-10 04:22] VITALS: RESP 16
[2020-08-10] MEDS: SODIUM CHLORIDE 0.9% 1,000 ML IV SCH (04:40)
[2020-08-10] MEDS: amLODIPine 5 MG TAB PO SCH (05:53)
[2020-08-10] MEDS: TRIAMTERENE-HCTZ 75-50MG 1 EACH TAB PO SCH (05:53)
[2020-08-10] MEDS ORDERED: ATORVASTATIN 80 MG TAB PO ONE (07:00)
[2020-08-10] MEDS ORDERED: ASPIRIN 325 MG TAB PO ONE (07:00)
[2020-08-10 07:16] LABS: Cholesterol 160 mg/dL (<200); HDL Cholesterol 61 mg/dL (40-60); LDL Cholesterol,Calculated 75 mg/dL (0-99); Triglycerides 120 mg/dL (<150)
[2020-08-10] MEDS ORDERED: SODIUM CHLORIDE 0.9% 500 ML 500 ML IV ONE (11:10)
[2020-08-10] MEDS ORDERED: fentaNYL (PF) 50 MCG/ML 2 ML AMP IVP ONE (11:15)
[2020-08-10] MEDS ORDERED: MIDAZOLAM 2 MG/2 ML VIAL IVP ONE (11:16)
[2020-08-10] MEDS ORDERED: LIDOCAINE 1% INJ 10MG/ML (20 ML MDV) SQ ONE (11:17)
[2020-08-10] MEDS ORDERED: VERAPAMIL SYRINGE (5 MG/10 ML) INTRAARTER ONE ×2 (11:19→11:32)
[2020-08-10] MEDS ORDERED: HEPARIN SODIUM 1,000 UN/ML (10ML VL) IV ONE (11:20)
[2020-08-10] MEDS ORDERED: IOPAMIDOL-370 125ML BTL INJ ONE (11:35)
[2020-08-10] MEDS ORDERED: RX INFO: IV CONTRAST WAS GIVEN 1 EACH MISC MISCELLANE PRN (11:39)
--- NOTE | 2020-08-10 11:44 | P.CARDCATH ---
Date of Procedure: 08/10/20 Preoperative Diagnosis: Chest pain and positive stress test Postoperative Diagnosis: Normal coronary arteries Procedure(s) Performed: Left heart catheterization without left ventriculography Description of Procedure: HISTORY: This is a 65-year-old female who was admitted to the hospital with complaints of chest pains. Cardiac enzymes were negative. Patient had a nuclear stress test that showed ischemia involving the inferoapical area. Patient is advised to have cardiac catheterization for definitive diagnosis CONSENT:I have discussed the risks, benefits and alternative therapies for the above-mentioned procedure and for both sedation/analgesia as well as necessary blood product administration, if indicated, as they pertain to this patient. The patient has indicated understanding and acceptance of the risks and pro cedures discussed. [] PROCEDURE: Patient was brought to the lab in a fasting state. Patient was given some IV sedation. The right wrist is infiltrated with lidocaine and right radial artery was entered using Seldinger technique. A 6-Divehi catheter was left in place and selective coronary arteriography was performed. Patient tolerated the procedure well. TR band was applied for hemostasis. No immediate complications were noted and patient was transferred to [facility] in a stable condition Conscious Sedation: Versed 1mg Fentanyl 25 g Duration 19minutes HEMODYNAMICS: Aortic pressure is about 130/70. Left ventricle end-diastolic pressure was 16. There was no gradient across the aortic valve SELECTIVE CORONARY ARTERIOGRAPHY: LEFT MAIN: Normal length and free of occlusive disease THE LEFT ANTERIOR DESCENDING CORONARY ARTERY: . Good caliber vessel reaching the apex. Free of occlusive disease THE LEFT CIRCUMFLEX AND IS CORONARY ARTERY: . Nondominant vessel free of occlusive disease THE RIGHT CORONARY ARTERY: . [place] vessel giving rise to PDA and PLV. Free of occlusive disease LEFT VENTRICULOGRAPHY: . Not performed FINAL IMPRESSION: Normal coronary arteries. Mildly elevated end-diastolic pressure PLAN: . Continue maximal medical therapy and this factor modification PROGNOSIS: Good
[2020-08-10] MEDS ORDERED: SODIUM CHLORIDE 0.9% 1,000 ML IV SCH (11:45)
--- NOTE | 2020-08-10 15:17 | P.DS ---
Providers Date of admission: 08/09/20 01:09 Expected date of discharge: 08/10/20 Attending physician: Jordy Soto MD Consults: 08/09/20 01:07 Consult Physician Routine Consulting Provider: Joe Kasper Consult Reason/Comments: chest pain Do you want consulting provider notified?: Yes Primary care physician: Navarro Rhodes Hospital Course: Discharge Diagnosis: Noncardiac chest pain Osteoarthritis Elevated blood pressure without history of hypertension Leukocytosis, reactive Hypokalemia Hospital Course: Patient is a 65-year-old female with a past medical history of hypertension, anxiety disorder with panic attacks, and osteoarthritis who presented to the emergency room with chest pain. She was supposed to undergo elective total knee arthroplasty on 08/09. In the ER she underwent an extensive evaluation. On arrival she was slightly hypertensive with a blood pressure 159/90. Initial laboratory analysis showed with a cold, 13.3, sodium 136, potassium 3.4, BUN 24, and glucose of 118. Initial troponin was negative and EKG appeared nonischemic. Chest x-ray showed no acute process. She was noted to have an aspirin but she refused due to her possible knee surgery. Her potassium was replaced and she started on IV fluids. She was placed in observation for chest pain. The remainder of her troponins were negative. She was seen by cardiology on 08/09 and subsequently underwent a Lexiscan stress test which showed small area of reversibility along the mid to apical inferior lateral wall. Echocardiogram demonstrated an ejection fraction of 60-65% with mild MR and TR and no pericardial effusion. She underwent cardiac catheterization which did not show any significant coronary artery disease. She had remained chest pain-free during her hospital stay and she was subsequently determined stable for discharge. She'll follow up with Dr. Mccauley next week and her primary care physician Dr. Alejandro Rhodes in 1-2 days Patient seen and examined at bedside. No additional chest pain or shortness of breath. Feeling better. Is aware the importance of following up with her primary care physician as well as Dr. Mccauley next week for recheck. Vital signs reviewed and stable. General: non toxic, no distress, appears at stated age Derm: warm, dry Head: atraumatic, normocephalic, symmetric Eyes: EOMI, no lid lag, anicteric sclera Mouth: no lip lesion, mucus membranes moist Cardiovascular: S1S2 reg, no murmur, positive posterior tibial pulse bilateral, Lungs: CTA bilateral, no rhonchi, no rales , no accessory muscle use Abdominal: soft, nontender to palpation, no guarding, no appreciable organomegaly Ext: no gross muscle atrophy, no edema, no contractures Neuro: CN II-XI grossly intact, no focal neuro deficits Psych: Alert, oriented, appropriate affect A total of 25 minutes of time were spent preparing this complex discharge summary . Patient Condition at Discharge: Good Plan - Discharge Summary New Discharge Prescriptions: Continue amLODIPine [Norvasc] 5 mg PO DAILY Triamterene/Hydrochlorothiazid [Triamterene-Hctz 75-50 mg Tab] 1 tab PO DAILY Citalopram Hydrobromide [Citalopram HBr] 20 mg PO HS traMADol HCL [Ultram] 50 mg PO Q6HR PRN PRN Reason: Pain Pravastatin Sodium [Pravachol] 40 mg PO HS Omeprazole Magnesium [PriLOSEC OTC] 20 mg PO BID PRN PRN Reason: Heartburn Discharge Medication List Citalopram Hydrobromide [Citalopram HBr] 20 mg PO HS 08/03/20 [History] Omeprazole Magnesium [PriLOSEC OTC] 20 mg PO BID PRN 08/03/20 [History] Pravastatin Sodium [Pravachol] 40 mg PO HS 08/03/20 [History] Triamterene/Hydrochlorothiazid [Triamterene-Hctz 75-50 mg Tab] 1 tab PO DAILY 08/03/20 [History] amLODIPine [Norvasc] 5 mg PO DAILY 08/03/20 [History] traMADol HCL [Ultram] 50 mg PO Q6HR PRN 08/03/20 [History] Follow up Appointment(s)/Referral(s): Dixon Mccauley MD [STAFF PHYSICIAN] - 1 Week Navarro Rhodes DO [Primary Care Provider] - 1-2 days Patient Instructions/Handouts: Chest Pain (ED) Activity/Diet/Wound Care/Special Instructions: Activity: as tolerated Diet: heart healthy Discharge Disposition: HOME SELF-CARE
[2020-08-10 15:26] VITALS: BP 107/69; PULSE 60; TEMP 98.5
== END 2020-08-10 17:35 | disposition home or self-care (01) ==
LOC: SUPCPDRO 23:21 → EC 23:21 → 3NCARDOBS 08-09 01:09
PROVIDERS: ADMIT Internal Medicine; ATTEND Internal Medicine
DX: R07.89 Other chest pain (principal); E87.6 Hypokalemia; R94.39 Abnormal result of other cardiovascular function study; R03.0 Elevated blood-pressure reading, without diagnosis of hypertension; I08.1 Rheumatic disorders of both mitral and tricuspid valves; M17.11 Unilateral primary osteoarthritis, right knee; R11.0 Nausea; D72.829 Elevated white blood cell count, unspecified; R20.2 Paresthesia of skin; F41.0 Panic disorder [episodic paroxysmal anxiety]; E78.5 Hyperlipidemia, unspecified; Z79.899 Other long term (current) drug therapy; Z90.49 Acquired absence of other specified parts of digestive tract; Z98.51 Tubal ligation status; Z79.891 Long term (current) use of opiate analgesic; Z98.890 Other specified postprocedural states
CPT/HCPCS: 93005 ×2; 96365; 99285; 36415; 93017; 93306; 93458; 80061; 80053; 80048; 82150; 83690; 83735; 84484 ×2; 85025; 85027; 85610; 85730; 71046; 78452; G0378 ×2; C1769 ×2; C1894; A9500; J2250; J2001; J3010; J1644; J3480; J2785; Q9967

== ENCOUNTER 2024-02-01 21:59 | Emergency (ER) | payer MEDICARE, OTHER ==
--- NOTE | 2024-02-01 22:12 | ED ---
General Adult HPI - General Source: patient, RN notes reviewed Mode of arrival: ambulatory Limitations: no limitations <Rachel Allen - Last Filed: 02/01/24 22:11> <Teo Santa - Last Filed: 02/02/24 01:21> - General Stated complaint: kidney pain Time Seen by Provider: 02/01/24 22:11 - History of Present Illness Initial comments: Quick note: 68-year-old female presents to the emergency department for evaluation of left flank pain. Patient states that this started today. She notes that she has had dysuria and recurrent UTIs recently. She states that it feels like "razor blades" when she urinates. Admits to history of kidney ston es. Denies fever, chills. (Rachel Allen) 68-year-old female presenting to the ED with complaints of left flank pain. Patient reports for the last 8 weeks has been being treated for urinary tract infection. States today in addition to having dysuria, hematuria, and urgency started to develop left flank pain. Denies fever or chills. No chest pain or shortness of breath. No change in bowel habits. No other complaints at this time. (Teo Santa) - Related Data Home Medications Medication Instructions Recorded Confirmed Citalopram Hydrobromide 20 mg PO HS 08/03/20 08/09/20 [Citalopram HBr] Omeprazole Magnesium [PriLOSEC OTC] 20 mg PO BID PRN 08/03/20 08/09/20 Pravastatin Sodium [Pravachol] 40 mg PO HS 08/03/20 08/09/20 Triamterene/Hydrochlorothiazid 1 tab PO DAILY 08/03/20 08/09/20 [Triamterene-Hctz 75-50 mg Tab] amLODIPine [Norvasc] 5 mg PO DAILY 08/03/20 08/09/20 traMADol HCL [Ultram] 50 mg PO Q6HR PRN 08/03/20 08/09/20 Previous Rx's Medication Instructions Recorded Ciprofloxacin HCl [Cipro] 500 mg PO Q12HR 7 Days #14 tab 02/02/24 HYDROcodone/APAP 5-325MG [[place] 5] 1 each PO Q6HR PRN #12 tab 02/02/24 Ondansetron Odt [Zofran Odt] 4 mg PO Q8HR PRN #10 tab 02/02/24 Tamsulosin [Flomax] 0.4 mg PO DAILY #7 cap 02/02/24 Allergies Allergy/AdvReac Type Severity Reaction Status Date / Time No Known Allergies Allergy Verified 02/01/24 22:11 Review of Systems ROS Other: All systems not noted in ROS Statement are negative. <Rachel Allen - Last Filed: 02/01/24 22:11> ROS Other: All systems not noted in ROS Statement are negative. <Teo Santa - Last Filed: 02/02/24 01:21> ROS Statement: Those systems with pertinent positive or pertinent negative responses have been documented in the HPI. Past Medical History Past Medical History: No Reported History History of Any Multi-Drug Resistant Organisms: None Reported Past Surgical History: Appendectomy, Cholecystectomy, Orthopedic Surgery, Tonsillectomy, Tubal Ligation Additional Past Surgical History / Comment(s): eye surgery Past Psychological History: No Psychological Hx Reported Smoking Status: Never smoker Past Alcohol Use History: Daily Past Drug Use History: None Reported <Rachel Allen - Last Filed: 02/01/24 22:11> General Exam <Rachel Allen - Last Filed: 02/01/24 22:11> General appearance: alert, in no apparent distress Eye exam: Present: normal appearance Neck exam: Present: normal inspection Respiratory exam: Present: normal lung sounds bilaterally Cardiovascular Exam: Present: regular rate GI/Abdominal exam: Present: soft (No significant abdominal tenderness to palpation. No rebound guarding rigidity. Left CVA tenderness to percussion.) Neurological exam: Present: alert, oriented X3 Skin exam: Present: warm, dry <Teo Santa - Last Filed: 02/02/24 01:21> - General Exam Comments Initial Comments: Visual Physical Exam Vital signs reviewed General: Well-appearing, nontoxic, no acute distress. Head: Normocephalic, atraumatic Eyes: PERRLA, EOMI ENT: Airway patent Chest: Nonlabored breathing Skin: No visual rash, normal skin tone Neuro: Alert and oriented 3 Musculoskeletal: No gross abnormalities (Rachel Allen) Course Vital Signs 02/01/24 02/02/24 22:09 00:55 Temperature 98.0 F Pulse Rate 62 65 Respiratory 18 18 Rate Blood Pressure 135/67 149/78 O2 Sat by Pulse 96 97 Oximetry Medical Decision Making <Rachel Allen - Last Filed: 02/01/24 22:11> - Lab Data Result diagrams: 02/01/24 22:28 02/01/24 22:28 <Teo Santa - Last Filed: 02/02/24 01:21> - Medical Decision Making Quick note performed and electronically signed by Rachel Allen PA-C (Rachel Allen) Was pt. sent in by a medical professional or institution ([facility], [facility], urgent care, hospital, or longterm...) When possible be specific @ -No Did you speak to anyone other than the patient for history (EMS, parent, family, police, friend...)? What history was obtained from this source @ -No Did you review nursing and triage notes (agree or disagree)? Why? @ -I reviewed and agree with nursing and triage notes Were old charts reviewed (outside hosp., previous admission, EMS record, old EKG, old radiological studies, urgent care reports/EKG's, longterm records)? Report findings @ -No old charts were reviewed Differential Diagnosis (chest pain, altered mental status, abdominal pain women, abdominal pain men, vaginal bleeding, weakness, fever, dyspnea, syncope, headache, dizziness, GI bleed, back pain, seizure, CVA, palpatations, mental health, musculoskeletal)? @ -Differential Abdominal Pain Women: Appendicitis, Cholecystitis, diverticulosis, ischemic bowel, pancreatitis, hepatitis, UTI, gastroenteritis, AAA, incarcerated hernia, bowel obstruction, constipation, inflammatory bowel, hepatitis, peptic ulcer disease, splenic infarction, perforated viscus, vulvitis, ovarian torsion, PID, kidney stone, placenta abruption, this is not meant to be an all-inclusive list EKG interpreted by me (3pts min.). @ -None X-rays interpreted by me (1pt min.). @ -None done CT interpreted by me (1pt min.). @ -CT abdomen pelvis interpreted me which does reveal a 5 mm left UVJ stone with moderate hydronephrosis. U/S interpreted by me (1pt. min.). @ -None done What testing was considered but not performed or refused? (CT, X-rays, U/S, labs)? Why? @ -None What meds were considered but not given or refused? Why? @ -None Did you discuss the management of the patient with other professionals (professionals i.e. , PA, [facility], lab, RT, psych nurse, manager social media, assistant golf professional, teacher, safety and security officer, lining caser)? Give summary @ -Case discussed with Dr. Yin of urology who recommends outpatient follow- up. Was smoking cessation discussed for >3mins.? @ -No Was critical care preformed (if so, how long)? @ -No Were there social determinants of health that impacted care today? How? (Homelessness, low income, unemployed, alcoholism, drug addiction, transportation, low edu. Level, literacy, decrease access to med. care, penitentiary, rehab)? @ -No Was there de-escalation of care discussed even if they declined (Discuss DNR or withdrawal of care, Hospice)? DNR status @ -No What co-morbidities impacted this encounter? (DM, HTN, Smoking, COPD, CAD, Cancer, CVA, ARF, Chemo, Hep., AIDS, mental health diagnosis, sleep apnea, morbid obesity)? @ -None Was patient admitted / discharged? Hospital course, mention meds given and route, prescriptions, significant lab abnormalities, going to OR and other pertinent info. @ -Discharge 68-year-old female presenting with complaints of UTI symptoms for the past 8 weeks and today developed left flank pain. Laboratory studies reviewed. CBC CMP largely unremarkable. UA does show evidence of infection. CT abdomen pelvis does reveal a 5 mm left UVJ stone with moderate hydronephrosis. Urine culture was obtained. Upon evaluation, patient has no distress and patient reports pain is well-controlled. At this time, since patient has no white count and is afebrile and pain is well-controlled from a urologic standpoint felt she can follow-up outpatient. Provided dose of ceftriaxone here in the ED and discharged home with prescription for ciprofloxacin, [place], Flomax, Zofran, and a urinary strainer. Discussed strict return precautions with patient who verbalized agreement. Undiagnosed new problem with uncertain prognosis? @ -No Drug Therapy requiring intensive monitoring for toxicity (Heparin, Nitro, Insulin, Cardizem)? @ -No Were any procedures done? @ -No Diagnosis/symptom? @ -5 mm left UVJ stone, urinary tract infection Acute, or Chronic, or Acute on Chronic? @ -Acute Uncomplicated (without systemic symptoms) or Complicated (systemic symptoms)? @ -Uncomplicated Side effects of treatment? @ -No Exacerbation, Progression, or Severe Exacerbation? @ -No Poses a threat to life or bodily function? How? (Chest pain, [place], [place], pneumonia, PE, COPD, DKA, ARF, appy, cholecystitis, CVA, Diverticulitis, Homicidal, Suicidal, threat to staff... and all critical care pts) @ -Unlikely at this time (Teo Santa) - Lab Data Lab Results 02/01/24 02/01/24 02/01/24 Range/Units 22:28 22:28 22:30 WBC 9.1 (3.8-10.6) k/uL RBC 4.04 (3.80-5.40) m/uL Hgb 12.7 (11.4-16.0) gm/dL Hct 38.3 (34.0-46.0) % MCV 94.8 (80.0-100.0) fL MCH 31.5 (25.0-35.0) pg MCHC 33.2 (31.0-37.0) g/dL RDW 12.9 (11.5-15.5) % Plt Count 251 (150-450) k/uL MPV 8.2 Neutrophils % 76 % Lymphocytes % 14 % Monocytes % 6 % Eosinophils % 2 % Basophils % 1 % Neutrophils # 6.9 (1.3-7.7) k/uL Lymphocytes # 1.3 (1.0-4.8) k/uL Monocytes # 0.5 (0-1.0) k/uL Eosinophils # 0.2 (0-0.7) k/uL Basophils # 0.1 (0-0.2) k/uL Sodium 137 (137-145) mmol/L Potassium 3.1 L (3.5-5.1) mmol/L Chloride 107 (98-107) mmol/L Carbon Dioxide 23 (22-30) mmol/L Anion Gap 7 mmol/L BUN 13 (7-17) mg/dL Creatinine 0.86 (0.52-1.04) mg/dL Est GFR (CKD-EPI)AfAm 80 (>60 ml/min/1.73 sqM) Est GFR (CKD-EPI)NonAf 69 (>60 ml/min/1.73 sqM) Glucose 97 (74-99) mg/dL Calcium 9.0 (8.4-10.2) mg/dL Total Bilirubin 0.7 (0.2-1.3) mg/dL AST 27 (14-36) U/L ALT 20 (4-34) U/L Alkaline Phosphatase 78 (38-126) U/L Total Protein 6.7 (6.3-8.2) g/dL Albumin 4.0 (3.5-5.0) g/dL Urine Color Light Yellow Urine Appearance Turbid H (Clear) Urine pH 6.5 (5.0-8.0) Ur Specific [place] 1.015 (1.001-1.035) Urine Protein 1+ H (Negative) Urine Glucose (UA) Negative (Negative) Urine Ketones Negative (Negative) Urine Blood Moderate H (Negative) Urine Nitrite Negative (Negative) Urine Bilirubin Negative (Negative) Urine Urobilinogen <2.0 (<2.0) mg/dL Ur Leukocyte Esterase Large H (Negative) Urine RBC >182 H (0-5) /hpf Urine WBC >182 H (0-5) /hpf Urine WBC Clumps Occasional H (None) /hpf Ur Squamous Epith Cells 2 (0-4) /hpf Urine Bacteria Moderate H (None) /hpf Hyaline Casts 6 H (0-2) /lpf Urine Mucus Few H (None) /hpf Disposition <Rachel Allen - Last Filed: 02/01/24 22:11> Is patient prescribed a controlled substance at d/c from ED?: Yes If prescribed controlled substance>3 days was MAPS reviewed?: Prescribed <3 Days Time of Disposition: 00:53 <Teo Santa - Last Filed: 02/02/24 01:21> Clinical Impression: Kidney stone Disposition: HOME SELF-CARE Condition: Good Instructions (If sedation given, give patient instructions): Kidney Stones (ED), Urinary Tract Infection in Women (ED) Additional Instructions: Please return to the Emergency Department if symptoms worsen or any other concerns. Please follow-up with urology Prescriptions: Ciprofloxacin HCl [Cipro] 500 mg PO Q12HR 7 Days #14 tab Tamsulosin [Flomax] 0.4 mg PO DAILY #7 cap HYDROcodone/APAP 5-325MG [[place] 5] 1 each PO Q6HR PRN #12 tab PRN Reason: Pain Ondansetron Odt [Zofran Odt] 4 mg PO Q8HR PRN #10 tab PRN Reason: Nausea Referrals: Lance Yin MD [STAFF PHYSICIAN] - 1-2 days Navarro Rhodes DO [Primary Care Provider] - 1-2 days Hossein Collins MD [STAFF PHYSICIAN] - 1-2 days
[2024-02-01 22:25] VITALS: RESP 18; TEMP 98
[2024-02-01 22:58] LABS: Basophils # (A) 0.1 k/uL (0-0.2); Basophils % (A) 1 %; Eosinophils # (A) 0.2 k/uL (0-0.7); Eosinophils % (A) 2 %; HCT 38.3 % (34.0-46.0); HGB 12.7 gm/dL (11.4-16.0); Lymphocytes # (A) 1.3 k/uL (1.0-4.8); Lymphocytes % (A) 14 %; MCH 31.5 pg (25.0-35.0); MCHC 33.2 g/dL (31.0-37.0); MCV 94.8 fL (80.0-100.0); Mean Platelet Volume 8.2; Monocytes # (A) 0.5 k/uL (0-1.0); Monocytes % (A) 6 %; Neutrophils # (A) 6.9 k/uL (1.3-7.7); Neutrophils % (A) 76 %; Platelet Count 251 k/uL (150-450); RBC 4.04 m/uL (3.80-5.40); RDW 12.9 % (11.5-15.5); WBC 9.1 k/uL (3.8-10.6)
[2024-02-01 23:14] LABS: ALT 20 U/L (4-34); AST 27 U/L (14-36); African American GFR (CKD) 80 (>60 ml/min/1.73 sqM); Alkaline Phosphatase 78 U/L (38-126); Anion Gap 7 mmol/L; Blood Urea Nitrogen 13 mg/dL (7-17); Carbon Dioxide 23 mmol/L (22-30); Chloride 107 mmol/L (98-107); Glucose 97 mg/dL (74-99); Non-African American GFR(CKD) 69 (>60 ml/min/1.73 sqM); Potassium 3.1 mmol/L (3.5-5.1); Sodium 137 mmol/L (137-145); Total Bilirubin 0.7 mg/dL (0.2-1.3); Total Protein 6.7 g/dL (6.3-8.2)
--- NOTE | 2024-02-01 23:18 | CT ---
EXAM: CT Abdomen and Pelvis Without Intravenous Contrast CLINICAL HISTORY: ITS.REASON CT Reason: lt flank pain, hx stones TECHNIQUE: Axial computed tomography images of the abdomen and pelvis without intravenous contrast. CTDI is 9.9 mGy and DLP is 520.6 mGy-cm. This CT exam was performed using one or more of the following dose reduction techniques: automated exposure control, adjustment of the mA and/or kV according to patient size, and/or use of iterative reconstruction technique. COMPARISON: No relevant prior studies available. FINDINGS: ABDOMEN: Liver: Unremarkable. Gallbladder and bile ducts: Cholecystectomy. Pancreas: Unremarkable. Spleen: Unremarkable. Adrenals: Unremarkable. Kidneys and ureters: There is a 5 mm stone at the left UVJ. Mild to moderate left hydronephrosis. Stomach and bowel: Unremarkable. PELVIS: Appendix: No findings to suggest acute appendicitis. Bladder: Circumferential mucosal thickening in the bladder. Reproductive: Unremarkable as visualized. ABDOMEN and PELVIS: Intraperitoneal space: Unremarkable. No free air. No significant fluid collection. Bones/joints: No acute fracture. Soft tissues: Unremarkable. Vasculature: Unremarkable. Lymph nodes: Unremarkable. IMPRESSION: 1. There is a 5 mm stone at the left UVJ. Mild to moderate left hydronephrosis. 2. Circumferential mucosal thickening in the bladder. Correlate for cystitis.
[2024-02-01 23:37] LABS: Appearance,Urine Turbid (Clear); Bacteria,Urine Moderate /hpf; Bilirubin,Urine Negative (Negative); Blood,Urine Moderate (Negative); Color,Urine Light Yellow; Glucose,Urine (UA) Negative (Negative); Hyaline Casts,Urine 6 /lpf (0-2); Ketones,Urine Negative (Negative); Leukocyte Esterase,Urine Large (Negative); Mucus,Urine Few /hpf; Nitrite,Urine Negative (Negative); PH, Urine 6.5 (5.0-8.0); Protein,Urine 1+ (Negative); RBC,Urine >182 /hpf (0-5); Specific Gravity,Urine 1.015 (1.001-1.035); Squamous Epithelial Cell,Urine 2 /hpf (0-4); Urobilinogen,Urine <2.0 mg/dL (<2.0); WBC,Urine >182 /hpf (0-5)
[2024-02-02] MEDS: cefTRIAXone IN SWFI 1,000 MG/10 ML SYRINGE IVP STA (00:50)
[2024-02-02 01:21] VITALS: BP 149/78; PULSE 65
== END 2024-02-02 01:09 | disposition home or self-care (01) ==
LOC: EC 21:59
DX: N13.6 Pyonephrosis (principal)
CPT/HCPCS: 36415; 80053; 85025; 81001; 87086; 74176; 99284; 96374; J0696

== ENCOUNTER 2024-08-29 21:41 | Inpatient (IN) | payer MEDICARE, OTHER ==
[2024-08-29 23:24] LABS: Basophils % (A) 0 %; Eosinophils # (A) 0.6 k/uL (0-0.7); Eosinophils % (A) 5 %; HCT 40.9 % (34.0-46.0); HGB 13.9 gm/dL (11.4-16.0); Lymphocytes # (A) 1.3 k/uL (1.0-4.8); Lymphocytes % (A) 10 %; MCH 31.2 pg (25.0-35.0); MCHC 33.9 g/dL (31.0-37.0); MCV 92.1 fL (80.0-100.0); Mean Platelet Volume 8.2; Monocytes # (A) 0.8 k/uL (0-1.0); Monocytes % (A) 6 %; Neutrophils # (A) 10.1 k/uL (1.3-7.7); Neutrophils % (A) 77 %; Platelet Count 267 k/uL (150-450); RBC 4.44 m/uL (3.80-5.40); RDW 12.3 % (11.5-15.5); WBC 13.1 k/uL (3.8-10.6)
[2024-08-29 23:40] LABS: ALT 41 U/L (4-34); AST 29 U/L (14-36); African American GFR (CKD) 63 (>60 ml/min/1.73 sqM); Albumin 4.8 g/dL (3.5-5.0); Alkaline Phosphatase 129 U/L (38-126); Amylase 160 U/L (30-110); Anion Gap 12 mmol/L; Blood Urea Nitrogen 18 mg/dL (7-17); Calcium 9.3 mg/dL (8.4-10.2); Carbon Dioxide 24 mmol/L (22-30); Chloride 101 mmol/L (98-107); Glucose 108 mg/dL (74-99); Lipase 1574 U/L (23-300); Non-African American GFR(CKD) 55 (>60 ml/min/1.73 sqM); Sodium 137 mmol/L (137-145); Total Bilirubin 1.3 mg/dL (0.2-1.3)
--- NOTE | 2024-08-29 23:57 | ED ---
General Adult HPI - General Chief complaint: Nausea/Vomiting/Diarrhea Stated complaint: Vomiting,Diarrhea Time Seen by Provider: 08/29/24 23:05 Source: patient Mode of arrival: ambulatory Limitations: no limitations - History of Present Illness Initial comments: Dictation was produced using [employer] dictation software. please excuse any grammatical, word or spelling errors. Chief Complaint: 69-year-old female presents with acute on chronic epigastric p ain nausea and vomiting History of Present Illness: Patient 69-year-old female denies any significant comorbidities. States that since Thursday she has been having epigastric abdominal pain nausea vomiting. Patient states she has had the symptoms on and off for the last several days. She had some crab salad which is usually her trigger. States that over the last several months she has had significant weight loss. She had extensive workup performed by GI specialist which showed negative scope. She was told that she does have a mild hiatal hernia. States that her emesis appeared to be bilious. The ROS documented in this emergency department record has been reviewed and confirmed by me. Those systems with pertinent positive or negative responses have been documented in the HPI. All other systems are other negative and/or noncontributory. - Related Data Home Medications Medication Instructions Recorded Confirmed Citalopram Hydrobromide 20 mg PO HS 08/03/20 08/09/20 [Citalopram HBr] Omeprazole Magnesium [PriLOSEC OTC] 20 mg PO BID PRN 08/03/20 08/09/20 Pravastatin Sodium [Pravachol] 40 mg PO HS 08/03/20 08/09/20 Triamterene/Hydrochlorothiazid 1 tab PO DAILY 08/03/20 08/09/20 [Triamterene-Hctz 75-50 mg Tab] amLODIPine [Norvasc] 5 mg PO DAILY 08/03/20 08/09/20 traMADol HCL [Ultram] 50 mg PO Q6HR PRN 08/03/20 08/09/20 Previous Rx's Medication Instructions Recorded Ciprofloxacin HCl [Cipro] 500 mg PO Q12HR 7 Days #14 tab 02/02/24 HYDROcodone/APAP 5-325MG [[place] 5] 1 each PO Q6HR PRN #12 tab 02/02/24 Ondansetron Odt [Zofran Odt] 4 mg PO Q8HR PRN #10 tab 02/02/24 Tamsulosin [Flomax] 0.4 mg PO DAILY #7 cap 02/02/24 Allergies Allergy/AdvReac Type Severity Reaction Status Date / Time No Known Allergies Allergy Verified 08/29/24 21:46 Review of Systems ROS Statement: Those systems with pertinent positive or pertinent negative responses have been documented in the HPI. ROS Other: All systems not noted in ROS Statement are negative. Past Medical History Past Medical History: No Reported History History of Any Multi-Drug Resistant Organisms: None Reported Past Surgical History: Appendectomy, Cholecystectomy, Orthopedic Surgery, Tonsillectomy, Tubal Ligation Additional Past Surgical History / Comment(s): eye surgery Past Psychological History: No Psychological Hx Reported Smoking Status: Never smoker Past Alcohol Use History: Daily Past Drug Use History: None Reported General Exam - General Exam Comments Initial Comments: PHYSICAL EXAM: General Impression: Alert and oriented x3, not in acute distress HEENT: Normocephalic atraumatic, extra-ocular movements intact, pupils equal and reactive to light bilaterally, mucous membranes moist. Cardiovascular: Heart regular rate and rhythm Chest: Able to complete full sentences, no retractions, no tachypnea Abdomen: abdomen soft, non-tender, non-distended, no organomegaly Musculoskeletal: Pulses present and equal in all extremities, no peripheral edema Motor: no focal deficits noted Neurological: CN II-XII grossly intact, no focal motor or sensory deficits noted Skin: Intact with no visualized rashes Psych: Normal affect and mood Limitations: no limitations Course Vital Signs 08/29/24 08/29/24 21:42 23:56 Temperature 98.2 F Pulse Rate 70 64 Respiratory 16 16 Rate Blood Pressure 126/80 137/66 O2 Sat by Pulse 98 99 Oximetry EKG Findings - EKG Comments: EKG Findings:: My EKG interpretation: Ventricular rate 61, sinus rhythm,. 195, QRS 108, QTc 318. No [place] prolongation, no QTC prolongation, no ST or T-wave changes noted. Overall, this EKG is unremarkable. My EKG interpretation: Ventricular rate 79, sinus rhythm, period of old 153, QRST 97, QTc 412. No [place] prolongation, no QTC prolongation, no ST or T-wave changes noted. Overall, this EKG is unremarkable Medical Decision Making - Medical Decision Making Was pt. sent in by a medical professional or institution (Dr., PA, INSULATION CUPOLA CHARGER, urgent care, hospital, or correction...) When possible be specific @ -No Did you speak to anyone other than the patient for history (EMS, parent, family, police, friend...)? What history was obtained from this source @ -No Did you review nursing and triage notes (agree or disagree)? Why? @ -I reviewed and agree with nursing and triage notes Were old charts reviewed (outside hosp., previous admission, EMS record, old EKG, old radiological studies, urgent care reports/EKG's, correction records)? Report findings @ -No old charts were reviewed Differential Diagnosis (chest pain, altered mental status, abdominal pain women, abdominal pain men, vaginal bleeding, musculoskeletal, weakness, fever, dyspnea, syncope, headache, dizziness, GI bleed, back pain, seizure, CVA, palpatations, mental health)? @ -Differential Abdominal Pain Women: Appendicitis, Cholecystitis, diverticulosis, ischemic bowel, pancreatitis, hepatitis, UTI, gastroenteritis, AAA, incarcerated hernia, bowel obstruction, constipation, inflammatory bowel, hepatitis, peptic ulcer disease, splenic infarction, perforated viscus, vulvitis, ovarian torsion, PID, kidney stone, placenta abruption, this is not meant to be an all-inclusive list EKG interpreted by me (3pts min.). @ -See above X-rays interpreted by me (1pt min.). @ -Abdominal x-ray is unremarkable CT interpreted by me (1pt min.). @ -None done U/S interpreted by me (1pt. min.). @ -None done What testing was considered but not performed or refused? (CT, X-rays, U/S, labs)? Why? @ -None What meds were considered but not given or refused? Why? @ -None Was smoking cessation discussed for >3mins.? @ -No Were there social determinants of health that impacted care today? How? (Homelessness, low income, unemployed, alcoholism, drug addiction, transpo rtation, low edu. Level, literacy, decrease access to med. care, shelter, rehab)? @ -No Was there de-escalation of care discussed even if they declined (Discuss DNR or withdrawal of care, Hospice)? DNR status @ -No What co-morbidities impacted this encounter? (DM, HTN, Smoking, COPD, CAD, Cancer, CVA, ARF, Chemo, Hep., AIDS, mental health diagnosis, sleep apnea, morbid obesity)? @ -Hiatal hernia Was patient admitted / discharged? Hospital course, mention meds given and route, prescriptions, significant lab abnormalities, going to OR and other pertinent info. @ -69-year-old female presents emergency department for abdominal pain. Vital signs upon arrival are within acceptable limits. Patient is well-appearing at the bedside. Laboratory evaluation obtained. Mild stress leukocytosis 13.1. Potassium 2.7. Lipase level 1574. Clinical presentation consistent with pancreatitis. Patient be admitted. Case discussed with hospitalist for admission Did you discuss the management of the patient with other professionals (professionals i.e. , PA, INSULATION CUPOLA CHARGER, lab, RT, psych nurse, social scientist, jailer, teacher, border patrol officer, case management social worker)? Give summary @ -See above Was critical care preformed (if so, how long)? @ -No Undiagnosed new problem with uncertain prognosis? @ -No Drug Therapy requiring intensive monitoring for toxicity (Heparin, Nitro, Insulin, Cardizem)? @ -No Were any procedures done? @ -No Diagnosis/symptom? Acute, or Chronic, or Acute on Chronic? Uncomplicated (wit hout systemic symptoms) or Complicated (systemic symptoms)? @ -Pancreatitis Side effects of treatment? @ -No Exacerbation, Progression, or Severe Exacerbation? @ -No Poses a threat to life or bodily function? How? (Chest pain, [place], [place], pneumonia, PE, COPD, DKA, ARF, appy, cholecystitis, CVA, Diverticulitis, Homicidal, Suicidal, threat to staff... and all critical care pts) @ -yes - Lab Data Result diagrams: 08/29/24 23:13 08/29/24 23:13 Lab Results 08/29/24 08/29/24 08/29/24 Range/Units 23:13 23:13 23:13 WBC 13.1 H (3.8-10.6) k/uL RBC 4.44 (3.80-5.40) m/uL Hgb 13.9 (11.4-16.0) gm/dL Hct 40.9 (34.0-46.0) % MCV 92.1 (80.0-100.0) fL MCH 31.2 (25.0-35.0) pg MCHC 33.9 (31.0-37.0) g/dL RDW 12.3 (11.5-15.5) % Plt Count 267 (150-450) k/uL MPV 8.2 Neutrophils % 77 % Lymphocytes % 10 % Monocytes % 6 % Eosinophils % 5 % Basophils % 0 % Neutrophils # 10.1 H (1.3-7.7) k/uL Lymphocytes # 1.3 (1.0-4.8) k/uL Monocytes # 0.8 (0-1.0) k/uL Eosinophils # 0.6 (0-0.7) k/uL Basophils # 0.0 (0-0.2) k/uL Sodium 137 (137-145) mmol/L Potassium 2.7 L* (3.5-5.1) mmol/L Chloride 101 (98-107) mmol/L Carbon Dioxide 24 (22-30) mmol/L Anion Gap 12 mmol/L BUN 18 H (7-17) mg/dL Creatinine 1.03 (0.52-1.04) mg/dL Est GFR (CKD-EPI)AfAm 63 (>60 ml/min/1.73 sqM) Est GFR (CKD-EPI)NonAf 55 (>60 ml/min/1.73 sqM) Glucose 108 H (74-99) mg/dL Calcium 9.3 (8.4-10.2) mg/dL Total Bilirubin 1.3 (0.2-1.3) mg/dL AST 29 (14-36) U/L ALT 41 H (4-34) U/L Alkaline Phosphatase 129 H (38-126) U/L Troponin I <0.012 (0.000-0.034) ng/mL Total Protein 8.0 (6.3-8.2) g/dL Albumin 4.8 (3.5-5.0) g/dL Amylase 160 H (30-110) U/L Lipase 1574 H (23-300) U/L Disposition Clinical Impression: Pancreatitis Disposition: ADMITTED IP TO THIS HOSP Condition: Fair Referrals: Navarro Rhodes DO [Primary Care Provider] - 1-2 days Decision Time: 02:51
[2024-08-30 00:11] LABS: Potassium 2.7 mmol/L (3.5-5.1)
[2024-08-30] MEDS: ONDANSETRON 4 MG/2 ML VIAL IVP STA (00:37)
--- NOTE | 2024-08-30 01:50 | XR ---
EXAM: XR Abdomen, 1 View CLINICAL HISTORY: ITS.REASON XR Reason: epigastric pain TECHNIQUE: Frontal supine view of the abdomen/pelvis. COMPARISON: No relevant prior studies available. FINDINGS: Gastrointestinal tract: Nonobstructed bowel gas pattern. Organs: Cholecystectomy clips. Bones/joints: Unremarkable. No acute fracture. IMPRESSION: Nonobstructed bowel gas pattern.
[2024-08-30] MEDS ORDERED: NALOXONE 0.4 MG/ML 1 ML VIAL IV PRN (02:48)
[2024-08-30] MEDS ORDERED: MORPHINE SULFATE 4 MG/ML SYRINGE IV PRN (02:48)
--- NOTE | 2024-08-30 03:50 | P.HPIM ---
History of Present Illness H&P Date: 08/30/24 History of present illness; Patient is a very pleasant 69-year-old female with PMH of chronic hypokalemia, hypertension, hyperlipidemia and anxiety/depression. Presented to the emergency department with abdominal pain, nausea and vomiting. She states that the pain began last Thursday, epigastric, associated with nausea and vomiting. States that she has had the symptoms on and off since then. She states that the pain is located centrally in the mid epigastric region and rates the pain at its worst is a 7/10. She states that throughout this time she has continued to have an appetite, however cannot always keep her food down with vomiting. She states that she has had similar episodes before with a similar sort of pain associated with nausea/vomiting, however it only led her to the hospital once prior. At that time it was attributed to a UTI she was having. She does endorse a significant drinking history of at least 2+ drinks on a nightly basis, she states she regularly has her drink topped off before she finishes her glass, so she is unsure exactly how much she is drinking. She does note that she has had significant weight loss over the last several months, upwards of 60 pounds. As result of this, she did have extensive workup performed by GI specialist which showed nothing of note. Patient is resting comfortably when seen at bedside, saying she would be more than happy to eat some food if she was able. She has no acute complaints at this time. Labratory review: -WBCs 13.1, Hgb 13.9, hct 40.9, platelet 267; sodium 137, potassium 2.7, BUN 18, creatinine 1.03, AST 29, ALT 41, alkaline phosphatase 129 -Amylase 160, lipase 1574 Imaging: -Abdominal x-ray done in the ED showed nonobstructed bowel gas pattern -EKG done in the ER showed heart rate of 61, sinus rhythm with no [place] prolongation, QTc prolongation, ST or T wave changes noted. QTc 318 Vitals: -Blood pressure 137/66, heart rate 64, respiratory rate 16, SpO2 99% on room air Patient admitted to internal medicine service REVIEW OF SYSTEMS: CONSTITUTIONAL: No fever, no malaise, no fatigue. HEENT: No recent visual problems or hearing problems. Denied any sore throat. CARDIOVASCULAR: No chest pain, orthopnea, PND, no palpitations, no syncope. PULMONARY: No shortness of breath, no cough, no hemoptysis. GASTROINTESTINAL: No diarrhea. Intermittent nausea, vomiting as well as mid epigastric region abdominal pain. NEUROLOGICAL: No headaches, no weakness, no numbness. HEMATOLOGICAL: Denies any bleeding or petechiae. GENITOURINARY: Denies any burning micturition, frequency, or urgency. MUSCULOSKELETAL/RHEUMATOLOGICAL: Denies any joint pain, swelling, or any muscle pain. ENDOCRINE: Denies any polyuria or polydipsia. The rest of the 14-point review of systems is negative. PHYSICAL EXAMINATION: GENERAL: The patient is alert and oriented x3, not in any acute distress. Well developed, well nourished. HEENT: No scleral icterus. No conjunctival pallor. Normocephalic, atraumatic. CARDIOVASCULAR: S1 and S2 present. No murmurs, rubs, or gallops. PULMONARY: Chest is clear to auscultation, no wheezing or crackles. ABDOMEN: Soft, nondistended, normoactive bowel sounds. No palpable organomegaly. Tenderness to palpation in the left upper quadrant and the midepigastric region. MUSCULOSKELETAL: No joint swelling or deformity. EXTREMITIES: No cyanosis, clubbing, or pedal edema. NEUROLOGICAL: Gross neurological examination did not reveal any focal deficits. SKIN: No rashes. Assessment and plan 69-year-old female with PMH of hypokalemia, hypertension, hyperlipidemia. Presented to the Emergency Department with new onset abdominal pain, nausea and vomiting. Discussed with the emergency department and the patient has been admitted to the internal medicine service for further evaluation. #Abdominal pain, suspect alcohol pancreatitis #Leukocytosis -WBCs of 13.1 -Amylase: 60, lipase 1574 -Triglycerides currently pending -Continue with lactated Ringer's 130 cc/h -Monitor urine output (>0.51 cc/kg/h) -Currently on clear liquid diet; advance to full diet as soon as tolerated -Continue to monitor electrolytes and CBC -Continue pain control with morphine as needed -Continue with Protonix 40 mg IV daily #Chronic hypokalemia -On arrival potassium 2.7 -Patient takes Prevalite powder once daily, has a known history of hypokalemia -Patient receiving 40 mEq potassium chloride IVPB once in the ED -Continue to monitor potassium closely -Replenish as needed #Hypertension -Maintained at home on triamtereneHCTZ 75-50 mg daily and amlodipine 5 mg daily -Continue amlodipine 5 mg -HOLD triamterene-HCTZ 75-50mg, as patient is receiving 130 cc/h LR #Hyperlipidemia -Continue home Pravachol 40 mg nightly #Anxiety/depression -Continue home escitalopram 20 mg daily CODE STATUS: Full code GI prohylaxis: Protonix 40 mg daily DVT prophylaxis: Lovenox 40 mg daily Dictation was produced using [employer] dictation software. please excuse any grammatical, word or spelling errors. Past Medical History Past Medical History: No Reported History History of Any Multi-Drug Resistant Organisms: None Reported Past Surgical History: Appendectomy, Cholecystectomy, Orthopedic Surgery, Tonsillectomy, Tubal Ligation Additional Past Surgical History / Comment(s): eye surgery Past Psychological History: No Psychological Hx Reported Smoking Status: Never smoker Past Alcohol Use History: Daily Past Drug Use History: None Reported Medications and Allergies Home Medications Medication Instructions Recorded Confirmed Type Citalopram Hydrobromide 20 mg PO HS 08/03/20 08/09/20 History [Citalopram HBr] Omeprazole Magnesium [PriLOSEC OTC] 20 mg PO BID PRN 08/03/20 08/09/20 History Pravastatin Sodium [Pravachol] 40 mg PO HS 08/03/20 08/09/20 History Triamterene/Hydrochlorothiazid 1 tab PO DAILY 08/03/20 08/09/20 History [Triamterene-Hctz 75-50 mg Tab] amLODIPine [Norvasc] 5 mg PO DAILY 08/03/20 08/09/20 History traMADol HCL [Ultram] 50 mg PO Q6HR PRN 08/03/20 08/09/20 History Ciprofloxacin HCl [Cipro] 500 mg PO Q12HR 7 Days #14 tab 02/02/24 Rx HYDROcodone/APAP 5-325MG [[place] 5] 1 each PO Q6HR PRN #12 tab 02/02/24 Rx Ondansetron Odt [Zofran Odt] 4 mg PO Q8HR PRN #10 tab 02/02/24 Rx Tamsulosin [Flomax] 0.4 mg PO DAILY #7 cap 02/02/24 Rx Allergies Allergy/AdvReac Type Severity Reaction Status Date / Time No Known Allergies Allergy Verified 08/29/24 21:46 Physical Exam Vitals: Vital Signs Temp Pulse Resp BP Pulse Ox 08/29/24 23:56 64 16 137/66 99 08/29/24 21:42 98.2 F 70 16 126/80 98 Intake and Output 08/29/24 08/29/24 08/30/24 14:59 22:59 06:59 Other: Weight 66.224 kg Results CBC & Chem 7: 08/29/24 23:13 08/29/24 23:13 Labs: Abnormal Lab Results - Last 24 Hours (Table) 08/29/24 08/29/24 Range/Units 23:13 23:13 WBC 13.1 H (3.8-10.6) k/uL Neutrophils # 10.1 H (1.3-7.7) k/uL Potassium 2.7 L* (3.5-5.1) mmol/L BUN 18 H (7-17) mg/dL Glucose 108 H (74-99) mg/dL ALT 41 H (4-34) U/L Alkaline Phosphatase 129 H (38-126) U/L Amylase 160 H (30-110) U/L Lipase 1574 H (23-300) U/L
[2024-08-30] MEDS: SODIUM CHLORIDE 0.9% 1,000 ML IV STA (03:59)
[2024-08-30] MEDS: ASPIRIN 81 MG PO STA (04:00)
[2024-08-30] MEDS: POTASSIUM CHLORIDE 40 MEQ in WATER FOR INJECTION 1 100ML.BAG IVPB STA (04:01)
[2024-08-30] MEDS: SODIUM CHLORIDE 0.9% 1,000 ML IV SCH (04:34)
[2024-08-30] MEDS: LACTATED RINGERS 1,000 ML IV SCH (05:02)
[2024-08-30] MEDS ORDERED: TRIAMTERENE-HCTZ 75-50MG 1 EACH TAB PO SCH (09:00)
[2024-08-30] MEDS: ENOXAPARIN 40 MG/0.4 ML SYRINGE SQ SCH (09:05)
[2024-08-30] MEDS: POTASSIUM CHLORIDE ER 20 MEQ TAB.ER PO STA ×2 (09:05→14:43)
[2024-08-30] MEDS: PANTOPRAZOLE 40 MG TABLET PO SCH (09:06)
[2024-08-30] MEDS: amLODIPine 5 MG TAB PO SCH (09:06)
[2024-08-30 09:48] LABS: ALT 34 U/L (8-44); AST 24 U/L (13-35); Albumin/Globulin Ratio 1.54 Ratio (1.60-3.17); Alkaline Phosphatase 108 U/L (41-126); Calcium 8.9 mg/dL (8.7-10.3); Carbon Dioxide 24.1 mmol/L (21.6-31.8); Chloride 100 mmol/L (96-109); Globulin 2.6 g/dL (1.6-3.3); Glucose 144 mg/dL (70-110); Potassium 2.7 mmol/L (3.5-5.5); Sodium 138 mmol/L (135-145); Total Bilirubin 0.9 mg/dL (0.3-1.2); Total Protein 6.6 g/dL (6.2-8.2)
[2024-08-30 10:21] LABS: Basophils # (A) 0.08 X 10*3/uL (0.00-0.10); Basophils % (A) 0.6 %; Eosinophils # (A) 0.77 X 10*3/uL (0.04-0.35); Eosinophils % (A) 6.1 %; HCT 34.7 % (37.2-46.3); Lymphocytes # (A) 1.51 X 10*3/uL (0.90-5.00); Lymphocytes % (A) 11.9 %; MCH 31.7 pg (27.0-32.0); MCHC 34.6 g/dL (32.0-37.0); MCV 91.6 FL (80.0-97.0); Mean Platelet Volume 11.1 FL (9.5-12.2); Monocytes # (A) 1.43 X 10*3/uL (0.20-1.00); Monocytes % (A) 11.3 %; NRBC Per 100 WBC 0 X 10*3/uL (0.00-0.01); Neutrophils # (A) 8.88 X 10*3/uL (1.80-7.70); Neutrophils % (A) 69.8 %; Platelet Count 255 X 10*3/uL (140-440); RBC 3.79 X 10*6/uL (4.10-5.20); RDW 12.5 % (11.5-14.5); WBC 12.71 X 10*3/uL (4.50-10.00)
[2024-08-30] MEDS: ESCITALOPRAM 20 MG TAB PO SCH (10:31)
[2024-08-30 13:03] LABS: African American GFR (CKD) 90 (>60 ml/min/1.73 sqM); Anion Gap 3 mmol/L; Blood Urea Nitrogen 11 mg/dL (7-17); Calcium 8.8 mg/dL (8.4-10.2); Carbon Dioxide 29 mmol/L (22-30); Chloride 106 mmol/L (98-107); Glucose 92 mg/dL (74-99); Non-African American GFR(CKD) 78 (>60 ml/min/1.73 sqM); Potassium 3.4 mmol/L (3.5-5.1); Sodium 138 mmol/L (137-145)
--- NOTE | 2024-08-30 19:25 | P.OBCN ---
History of Present Illness Consult date: 08/30/24 Reason for consult: other (labial lesions ) Chief complaint: labial lesions History of present illness: This is a 69-year-old 3 para 2-0-1-2 that was admitted to the hospital for pancreatitis. Patient describes labial lesions therefore TOOL RENTAL TECHNICIAN was consulted. Patient states she has had these lesions for quite some time and 1 appeared to be getting larger. She denies discomfort, occasionally she will have some itching associated with them. Patient denies any recent CUSHION SEWER care, states her last Pap was many years ago but denies any abnormal history of Pap testing. Patient states she struggles with chronic urinary tract infections which are managed with her primary care. She has been menopausal since around age 45, she is currently sexually active and denies concerns. Review of Systems Constitutional: Denies chills, Denies fatigue, Denies fever Ears, nose, mouth and throat: Denies headache Cardiovascular: Denies leg edema Respiratory: Denies dyspnea Gastrointestinal: Denies nausea, Denies vomiting Past Medical History Past Medical History: Deep Vein Thrombosis (DVT), Hypertension, Osteoarthritis (OA) Additional Past Medical History / Comment(s): bone on bone arthritits bilateral knees, blood clot in right leg 1979 History of Any Multi-Drug Resistant Organisms: None Reported Past Surgical History: Appendectomy, Cholecystectomy, Tonsillectomy, Tubal Ligation Additional Past Surgical History / Comment(s): eye surgery, attempted right knee replacement but was not able to do due to anxiety about surgery. Additional Past Anesthesia/Blood Transfusion Reaction / Comm: NA Past Psychological History: Anxiety, Depression, Panic Disorder Smoking Status: Former smoker Past Alcohol Use History: Daily Additional Past Alcohol Use History / Comment(s): 2 [place] ice tea a night Past Drug Use History: None Reported, Marijuana Additional Drug Use History / Comment(s): Marijuana gummies when needed, 1-2 daily - Past Family History Mother Family Medical History: Hypertension Additional Family Medical History / Comment(s): murdered her in 1979 per patient. Father History Unknown: Yes Brother(s) Additional Family Medical History / Comment(s): "heart murmur, and heart problems" Sister(s) Family Medical History: Cancer, Hypertension Additional Family Medical History / Comment(s): breast cancer per patient Medications and Allergies Home Medications Medication Instructions Recorded Confirmed Type Pravastatin Sodium [Pravachol] 40 mg PO HS 08/03/20 08/30/24 History Triamterene/Hydrochlorothiazid 1 tab PO DAILY 08/03/20 08/30/24 History [Triamterene-Hctz 75-50 mg Tab] amLODIPine [Norvasc] 5 mg PO DAILY 08/03/20 08/30/24 History Cholestyramine (with Sugar) 4 gm PO BID 08/30/24 08/30/24 History [Cholestyramine Packet] Escitalopram [Lexapro] 20 mg PO DAILY 08/30/24 08/30/24 History Allergies Allergy/AdvReac Type Severity Reaction Status Date / Time No Known Allergies Allergy Verified 08/30/24 07:23 Exam Osteopathic Statement: *. No significant issues noted on an osteopathic struc tural exam other than those noted in the History and Physical/Consult. Vital Signs Temp Pulse Pulse Resp BP BP Pulse Ox 08/30/24 18:50 97.6 F 66 16 113/58 99 08/30/24 14:09 97.6 F 62 18 156/64 08/30/24 13:03 98.7 F 55 L 16 105/67 98 08/30/24 07:40 98.9 F 64 16 106/54 98 08/30/24 06:35 98.7 F 56 L 15 112/81 96 08/30/24 05:02 68 16 127/65 98 08/30/24 04:20 98.7 F 62 16 123/54 99 08/29/24 23:56 64 16 137/66 99 08/29/24 21:42 98.2 F 70 16 126/80 98 Intake and Output 08/30/24 08/30/24 08/30/24 06:59 14:59 22:59 Intake Total 910 3320 Balance 910 3320 Intake: Oral 910 3320 Other: Voiding Method Toilet # Voids 5 Weight 66.224 kg Targeted physical exam is performed this date General Is well-nourished well- developed female in no acute distress, patient is resting comfortably in bed. Breathing appears nonlabored, abdomen is soft, on genitourinary exam external genitalia is noted to be normal for age, a inclusion cyst is noted on the left fluctuant nontender to palpation and additional inclusion cyst was appreciated on the right. Results Result Diagrams: 08/30/24 06:21 08/30/24 12:29 Abnormal Lab Results - Last 24 Hours (Table) 08/29/24 08/29/24 08/30/24 Range/Units 23:13 23:13 03:13 WBC 13.1 H (3.8-10.6) k/uL RBC (4.10-5.20) X 10*6/uL Hct (37.2-46.3) % Neutrophils # 10.1 H (1.3-7.7) k/uL Monocytes # (0.20-1.00) X 10*3/uL Eosinophils # (0.04-0.35) X 10*3/uL Potassium 2.7 L* 2.7 A* (3.5-5.1) mmol/L Anion Gap 13.90 H (4.00-12.00) mmol/L BUN 18 H (7-17) mg/dL Glucose 108 H 144 H (74-99) mg/dL ALT 41 H (4-34) U/L Alkaline Phosphatase 129 H (38-126) U/L Albumin/Globulin Ratio 1.54 L (1.60-3.17) Ratio Amylase 160 H (30-110) U/L Lipase 1574 H (23-300) U/L 08/30/24 08/30/24 Range/Units 06:21 12:29 WBC 12.71 H (3.8-10.6) k/uL RBC 3.79 L (4.10-5.20) X 10*6/uL Hct 34.7 L (37.2-46.3) % Neutrophils # 8.88 H (1.3-7.7) k/uL Monocytes # 1.43 H (0.20-1.00) X 10*3/uL Eosinophils # 0.77 H (0.04-0.35) X 10*3/uL Potassium 3.4 L (3.5-5.1) mmol/L Anion Gap (4.00-12.00) mmol/L BUN (7-17) mg/dL Glucose (74-99) mg/dL ALT (4-34) U/L Alkaline Phosphatase (38-126) U/L Albumin/Globulin Ratio (1.60-3.17) Ratio Amylase (30-110) U/L Lipase (23-300) U/L Assessment and Plan (1) Inclusion cyst Current Visit: Yes Status: Acute Code(s): L72.0 - EPIDERMAL CYST SNOMED Code(s): 464352043 (2) Pancreatitis Current Visit: Yes Status: Acute Code(s): K85.90 - ACUTE PANCREATITIS WITHOUT NECROSIS OR INFECTION, UNSP SNOMED Code(s): 08125960 Plan: 69-year-old -0-1-2 admitted for pancreatitis, TOOL RENTAL TECHNICIAN was consulted secondary to labial lesions. Labial lesions are inclusion cyst, exam is reviewed with the patient in detail and all questions are answered. These are quite normal lesions, patient is counseled they may drain spontaneously. All questions are answered patient states understanding. Thank you for the consult should she have any further questions regarding [place] please feel free to contact me
[2024-08-30] MEDS ORDERED: KETOROLAC 15 MG/ML 1 ML VIAL IVP PRN (20:54)
[2024-08-30] MEDS: MELATONIN 5 MG TABLET PO SCH (21:59)
[2024-08-30] MEDS: ACETAMINOPHEN TAB 325 MG TAB PO PRN (22:00)
[2024-08-30] MEDS: PRAVASTATIN SODIUM 40 MG TAB PO SCH (22:05)
[2024-08-31 08:59] LABS: HCT 32.8 % (34.0-46.0); HGB 11.2 gm/dL (11.4-16.0); MCH 32.1 pg (25.0-35.0); MCV 94.4 fL (80.0-100.0); Mean Platelet Volume 8.8; Platelet Count 217 k/uL (150-450); RBC 3.48 m/uL (3.80-5.40); RDW 12.5 % (11.5-15.5); WBC 6.6 k/uL (3.8-10.6)
[2024-08-31 09:08] LABS: BUN/Creat Ratio 10.33 Ratio (12.00-20.00); Blood Urea Nitrogen 6.2 mg/dL (9.0-27.0); Calcium 8.7 mg/dL (8.7-10.3); Carbon Dioxide 23.7 mmol/L (21.6-31.8); Chloride 111 mmol/L (96-109); Glucose 96 mg/dL (70-110); Potassium 3.7 mmol/L (3.5-5.5); Sodium 143 mmol/L (135-145)
[2024-08-31 14:03] VITALS: BMI 23.2
[2024-08-31] MEDS ORDERED: LORazepam 0.5 MG TAB PO PRN (16:47)
[2024-08-31] MEDS ORDERED: LORazepam 1 MG TAB PO PRN ×3 (16:47)
--- NOTE | 2024-08-31 17:16 | P.PN ---
Subjective Progress Note Date: 08/31/24 Hospital course: Patient is a pleasant 69-year-old female with a past medical history of daily alcohol use, chronic hypokalemia, hypertension, hyperlipidemia, and anxiety with depression. Presented to the emergency department on 08/29/2024 with a chief complaint of abdominal pain accompanied by nausea and vomiting. Upon arrival to our facility, patient underwent evaluation in the emergency department. Vital signs upon arrival show blood pressure 126/80, heart rate 70, respiratory rate 16, temp 98.2 F, and SpO2 of 98% on room air. Labs were completed and reviewed. CBC showing leukocytosis with WBC count of 13.1. BMP showing hypokalemia with potassium of 2.7 and mild prerenal azotemia with BUN of 18. Blood glucose was 108. Liver profile showing elevated ALT of 41 and alkaline phosphatase of 129. Troponin was negative at less than 0.012. Amylase was 160 and lipase was 1574. Abdominal x-ray showing nonobstructive bowel gas pattern. EKG showing normal sinus rhythm at 61 bpm. Patient admitted under our services for acute alcoholic pancreatitis. After admission patient reporting bilateral labial wound/irritation and instructional interventionist consulted for evaluation. Gynecology evaluating stating normal labial cysts. Physical exam: Patient seen and fully evaluated at bedside this morning. She reports epigastric pain unchanged when compared to yesterday. She reports nausea slightly improved but did report episode of nausea earlier this morning. Patient will keep her on clear liquids for an additional 24 hours and attempt to advance diet tomorrow. Vital signs reviewed and stable. General: Nontoxic, no distress and appears stated age. Derm: Skin warm and dry, normal coloration for ethnicity. Head: Atraumatic, normocephalic and symmetric. Eyes: EOM's intact, no lid lag, and anicteric sclera Mouth: no lip lesions, mucus membranes moist Cardiovascular: regular rate and rhythm with normal S1S2, no murmur, positive posterior tibial pulses bilaterally, and cap refill < 2 seconds. Lungs: Respirations even, regular, and unlabored on room air. Lungs CTA bilaterally, no rhonchi, no rales, no wheezing, and no accessory muscle usage. Abdominal: soft, mild tenderness to epigastric region on palpation, no guarding, no appreciable organomegaly Ext: Movement and sensation intact. No gross muscle atrophy, no edema, no contractures Neuro: Speech clear, face symmetrical and CN II-XII grossly intact with no noted focal neuro deficits Psych: Alert and oriented to person, place, time, and situation. Appropriate and pleasant affect. Assessment and Plan of Care: Acute alcoholic pancreatitis Daily alcohol use/abuse Leukocytosis, resolved Hypokalemia, resolved Elevated liver enzymes, secondary to daily alcohol use -Continue with aggressive IV fluid hydration with dated Ringer's at 130 cc/h -Plan of care and pain management with Tylenol 650 mg p.o. every 6 hours as needed for mild pain/fever, Toradol 15 mg IVP every 6 hours as needed for moderate pain, and morphine 4 mg IVP every 4 hours as needed for severe pain. -Continue Zofran 4 mg IVP every 8 hours as needed for nausea and vomiting. -GI prophylaxis with Protonix. -DVT prophylaxis with Lovenox. -Order placed for monitoring of CIWA scores and patient to be medicated with Ativan 0.5 mg every 4 hours as needed for CIWA score of 4-5, Ativan 1 mg every 4 hours for CIWA score of 6-7, Ativan 2 mg every 3 hours CIWA score of 8-9, and Ativan 2 mg every 2 hours forr CIWA score of 10 or greater. -Thiamine 100 mg daily, and Multivitamin daily, and Folate 1 mg daily -Continued close monitoring of electrolytes and replace as needed. -Had long discussion with the patient and educated her regarding importance of alcohol cessation. Hypertension -Hold triamtereneHCTZ 75-50 mg daily due to need for aggressive IV fluid hydration and pt to continue amlodipine 5 mg daily Hyperlipidemia -Continue home Pravachol 40 mg nightly Anxiety/depression -Continue home escitalopram 20 mg daily. Labial Cysts -Patient was evaluated by instructional interventionist reporting normal labial inclusion cysts and no need for further workup at this time. Data and imaging reviewed: -Morning labs reviewed. CBC showing resolution of leukocytosis with WBC count of 6.6. BMP showing mild hyperchloremia with chloride of 111 otherwise normal findings. Blood glucose 96. Hypokalemia resolved with potassium of 3.7. -Vital signs reviewed 113/68, HR 55, respiratory rate 16, temp 97.9 F, and SpO2 of 98% on room air. CODE STATUS: Full code DVT prophylaxis: Lovenox Anticipated discharge date: Pending clinical course Anticipated discharge place: Home Patient was seen independently by Nurse Pracitioner. This document was prepared using [employer] dictation software. Please allow for errors in business intelligence consultant, while rare they do occur. Thaddeus Guzman THIMBLE PRESS OPERATOR rendered care for this patient independently, reviewed the findings and plan as documented in the note above and agree with plan. I did not physically speak with or examine the patient on this date. Objective - Vital Signs Vital signs: Vital Signs Temp 97.9 F 08/31/24 07:03 Pulse 55 L 08/31/24 07:03 Resp 16 08/31/24 07:03 BP 113/68 08/31/24 07:03 Pulse Ox 98 08/31/24 07:03 FiO2 Intake & Output 08/30/24 08/31/24 08/31/24 18:59 06:59 18:59 Intake Total 4230 Balance 4230 Weight 66.224 kg Intake: Oral 4230 Other: Voiding Method Toilet Toilet # Voids 5 3 - Labs CBC & Chem 7: 08/31/24 04:41 08/31/24 04:41 Labs: Abnormal Lab Results - Last 24 Hours (Table) 08/30/24 08/30/24 08/30/24 Range/Units 03:13 06:21 12:29 WBC 12.71 H (4.50-10.00) X 10*3/uL RBC 3.79 L (4.10-5.20) X 10*6/uL Hct 34.7 L (37.2-46.3) % Neutrophils # 8.88 H (1.80-7.70) X 10*3/uL Monocytes # 1.43 H (0.20-1.00) X 10*3/uL Eosinophils # 0.77 H (0.04-0.35) X 10*3/uL Potassium 2.7 A* 3.4 L (3.5-5.5) mmol/L Anion Gap 13.90 H (4.00-12.00) mmol/L Glucose 144 H (70-110) mg/dL Albumin/Globulin Ratio 1.54 L (1.60-3.17) Ratio
[2024-08-31] MEDS: KETOROLAC 15 MG/ML 1 ML VIAL IVP PRN (20:59)
[2024-08-31] MEDS: ONDANSETRON 4 MG/2 ML VIAL IVP PRN (21:00)
[2024-09-01 08:43] LABS: HGB 10.3 g/dL (12.0-15.0); MCH 30.9 pg (27.0-32.0); MCHC 33.2 g/dL (32.0-37.0); MCV 93.1 FL (80.0-97.0); NRBC Per 100 WBC 0 X 10*3/uL (0.00-0.01); Platelet Count 201 X 10*3/uL (140-440); RBC 3.33 X 10*6/uL (4.10-5.20); RDW 12.5 % (11.5-14.5); WBC 5.65 X 10*3/uL (4.50-10.00)
[2024-09-01 08:51] LABS: ALT 21 U/L (8-44); AST 17 U/L (13-35); Albumin 3.2 g/dL (3.8-4.9); Albumin/Globulin Ratio 1.68 Ratio (1.60-3.17); Alkaline Phosphatase 80 U/L (41-126); BUN/Creat Ratio 8.17 Ratio (12.00-20.00); Blood Urea Nitrogen 4.9 mg/dL (9.0-27.0); Calcium 8.4 mg/dL (8.7-10.3); Carbon Dioxide 24.9 mmol/L (21.6-31.8); Chloride 110 mmol/L (96-109); Globulin 1.9 g/dL (1.6-3.3); Glucose 87 mg/dL (70-110); Magnesium 1.4 mg/dL (1.5-2.4); Potassium 3.7 mmol/L (3.5-5.5); Sodium 144 mmol/L (135-145); Total Bilirubin 0.5 mg/dL (0.3-1.2); Total Protein 5.1 g/dL (6.2-8.2)
[2024-09-01] MEDS: FOLIC ACID 1 MG TAB PO SCH (10:17)
[2024-09-01] MEDS: MULTIVITAMINS, THERA 1 EACH TAB PO SCH (10:17)
[2024-09-01] MEDS: THIAMINE 100 MG TAB PO SCH (10:17)
--- NOTE | 2024-09-01 15:48 | P.PN ---
Subjective Progress Note Date: 09/01/24 Hospital course: Patient is a pleasant 69-year-old female with a past medical history of daily alcohol use, chronic hypokalemia, hypertension, hyperlipidemia, and anxiety with depression. Presented to the emergency department on 08/29/2024 with a chief complaint of abdominal pain accompanied by nausea and vomiting. Upon arrival to our facility, patient underwent evaluation in the emergency department. Vital signs upon arrival show blood pressure 126/80, heart rate 70, respiratory rate 16, temp 98.2 F, and SpO2 of 98% on room air. Labs were completed and reviewed. CBC showing leukocytosis with WBC count of 13.1. BMP showing hypokalemia with potassium of 2.7 and mild prerenal azotemia with BUN of 18. Blood glucose was 108. Liver profile showing elevated ALT of 41 and alkaline phosphatase of 129. Troponin was negative at less than 0.012. Amylase was 160 and lipase was 1574. Abdominal x-ray showing nonobstructive bowel gas pattern. EKG showing normal sinus rhythm at 61 bpm. Patient admitted under our services for acute alcoholic pancreatitis. After admission patient reporting bilateral labial wound/irritation and stapler hand consulted for evaluation. Gynecology evaluating stating normal labial cysts. Physical exam: Patient seen and fully evaluated at bedside this morning. She reports epigastric pain unchanged when compared to yesterday. She reports nausea slightly improved but did report episode of nausea earlier this morning. Patient will keep her on clear liquids for an additional 24 hours and attempt to advance diet tomorrow. Vital signs reviewed and stable. General: Nontoxic, no distress and appears stated age. Derm: Skin warm and dry, normal coloration for ethnicity. Head: Atraumatic, normocephalic and symmetric. Eyes: EOM's intact, no lid lag, and anicteric sclera Mouth: no lip lesions, mucus membranes moist Cardiovascular: regular rate and rhythm with normal S1S2, no murmur, positive posterior tibial pulses bilaterally, and cap refill < 2 seconds. Lungs: Respirations even, regular, and unlabored on room air. Lungs CTA bilaterally, no rhonchi, no rales, no wheezing, and no accessory muscle usage. Abdominal: soft, mild tenderness to epigastric region on palpation, no guarding, no appreciable organomegaly Ext: Movement and sensation intact. No gross muscle atrophy, no edema, no contractures Neuro: Speech clear, face symmetrical and CN II-XII grossly intact with no noted focal neuro deficits Psych: Alert and oriented to person, place, time, and situation. Appropriate and pleasant affect. Assessment and Plan of Care: Acute alcoholic pancreatitis Daily alcohol use/abuse Hypomagnesemia Normocytic anemia Leukocytosis, resolved Hypokalemia, resolved Elevated liver enzymes, secondary to daily alcohol use -Patient tolerating clear liquid diet was advanced to full liquid diet this morning and IV fluids were decreased to 75 cc/h with lactated Ringer's. -Continue symptomatic care and pain management with Tylenol 650 mg p.o. every 6 hours as needed for mild pain/fever, Toradol 15 mg IVP every 6 hours as needed for moderate pain, and morphine 4 mg IVP every 4 hours as needed for severe pain. -Continue Zofran 4 mg IVP every 8 hours as needed for nausea and vomiting. -GI prophylaxis with Protonix. -DVT prophylaxis with Lovenox. -Continue monitoring of CIWA scores and patient to be medicated with Ativan 0.5 mg every 4 hours as needed for CIWA score of 4-5, Ativan 1 mg every 4 hours for CIWA score of 6-7, Ativan 2 mg every 3 hours CIWA score of 8-9, and Ativan 2 mg every 2 hours forr CIWA score of 10 or greater. -Thiamine 100 mg daily, and Multivitamin daily, and Folate 1 mg daily -Continued close monitoring of electrolytes and replace as needed. -Had long discussion with the patient and educated her regarding importance of alcohol cessation. Hypertension -Hold triamterene-HCTZ 75-50 mg daily due to need for aggressive IV fluid hydration and pt to continue amlodipine 5 mg daily Hyperlipidemia -Continue home Pravachol 40 mg nightly Anxiety/depression -Continue home escitalopram 20 mg daily. Labial Cysts -Patient was evaluated by stapler hand reporting normal labial inclusion cysts and no need for further workup at this time. Data and imaging reviewed: -Morning labs reviewed. CBC showing hemoglobin 10.3, WBC count of 5.65, platele t count of 201. BMP showing mild hyperchloremia with chloride of 110 otherwise normal findings. Blood glucose 87. Magnesium 1.4 and orders placed for magnesium sulfate 3 g IVPB. -Vital signs reviewed blood pressure 118/54, heart rate 54, respiratory rate 17, temp 97.8 F, and SpO2 of 99% on room air. CODE STATUS: Full code DVT prophylaxis: Lovenox Anticipated discharge date: Pending clinical course Anticipated discharge place: Home Patient was seen independently by Nurse Pracitioner. This document was prepared using [employer] dictation software. Please allow for errors in universal winding machine operator, while rare they do occur. Thaddeus Guzman NP rendered care for this patient independently, reviewed the f indings and plan as documented in the note above and agree with plan. I did not physically speak with or examine the patient on this date. Objective - Vital Signs Vital signs: Vital Signs Temp 97.8 F 09/01/24 07:53 Pulse 54 L 09/01/24 07:53 Resp 17 09/01/24 07:53 BP 118/54 09/01/24 07:53 Pulse Ox 99 09/01/24 07:53 FiO2 Intake & Output 08/31/24 09/01/24 09/01/24 18:59 06:59 18:59 Intake Total 2733 Balance 2733 Weight 67.3 kg Intake: Oral 2733 Other: # Voids 6 3 # Bowel Movements 3 - Labs CBC & Chem 7: 09/01/24 05:05 09/01/24 05:05 Labs: Abnormal Lab Results - Last 24 Hours (Table) 08/31/24 08/31/24 Range/Units 04:41 04:41 RBC 3.48 L (3.80-5.40) m/uL Hgb 11.2 L (11.4-16.0) gm/dL Hct 32.8 L (34.0-46.0) % Chloride 111 H (96-109) mmol/L BUN 6.2 L (9.0-27.0) mg/dL BUN/Creatinine Ratio 10.33 L (12.00-20.00) Ratio
[2024-09-01] MEDS: MAGNESIUM SULFATE-D5W PMX 1 GM in DEXTROSE/WATER 1 100ML.BAG IVPB SCH (16:33)
--- NOTE | 2024-09-01 17:03 | XR ---
EXAMINATION TYPE: XR chest 2V DATE OF EXAM: 09/01/2024 4:57 PM COMPARISON: Chest radiographs from 08/08/2020 CLINICAL INDICATION: Female, 69 years old with history of chest pain; TECHNIQUE: XR chest 2V Frontal and lateral views of the chest. FINDINGS: Lungs/Pleura: There is no evidence of pleural effusion, focal consolidation, or pneumothorax. Pulmonary vascularity: Unremarkable. Heart/mediastinum: Cardiomediastinal silhouette is unremarkable. Musculoskeletal: No acute osseous pathology. IMPRESSION: No acute cardiopulmonary disease/process. [facility], , 09/01/2024 5:01 PM
[2024-09-02 08:39] LABS: HCT 31.2 % (37.2-46.3); HGB 10.6 g/dL (12.0-15.0); MCH 30.6 pg (27.0-32.0); MCV 90.2 FL (80.0-97.0); Mean Platelet Volume 11.2 FL (9.5-12.2); NRBC Per 100 WBC 0 X 10*3/uL (0.00-0.01); Platelet Count 233 X 10*3/uL (140-440); RBC 3.46 X 10*6/uL (4.10-5.20); RDW 12.5 % (11.5-14.5); WBC 6.13 X 10*3/uL (4.50-10.00)
[2024-09-02 09:11] LABS: ALT 20 U/L (8-44); AST 15 U/L (13-35); Albumin 3.2 g/dL (3.8-4.9); Albumin/Globulin Ratio 1.68 Ratio (1.60-3.17); Alkaline Phosphatase 79 U/L (41-126); BUN/Creat Ratio <5.83 Ratio (12.00-20.00); Blood Urea Nitrogen <3.5 mg/dL (9.0-27.0); Calcium 8.2 mg/dL (8.7-10.3); Carbon Dioxide 26.7 mmol/L (21.6-31.8); Chloride 110 mmol/L (96-109); Globulin 1.9 g/dL (1.6-3.3); Glucose 95 mg/dL (70-110); Potassium 3.2 mmol/L (3.5-5.5); Sodium 145 mmol/L (135-145); Total Bilirubin 0.3 mg/dL (0.3-1.2); Total Protein 5.1 g/dL (6.2-8.2)
[2024-09-02 12:12] VITALS: TEMP 98.6
[2024-09-02] MEDS: POTASSIUM CHLORIDE ER 20 MEQ TAB.ER PO STA (13:17)
--- NOTE | 2024-09-02 13:50 | P.DS ---
Providers Date of admission: 08/30/24 02:48 Expected date of discharge: 09/02/24 Attending physician: Jordy Soto MD Consults: 08/30/24 13:47 Consult Physician Routine Consulting Provider: Lindy Mckay Consult Reason/Comments: BILATERAL LABIA LUMP/ABNORMALITY Do you want consulting provider notified?: Yes Primary care physician: Navarro Rhodes Hospital Course: Discharge Diagnosis: Acute alcoholic pancreatitis Daily alcohol use/abuse Hypomagnesemia. Resolved. Normocytic anemia Leukocytosis, resolved Hypokalemia, resolved Elevated liver enzymes, secondary to daily alcohol use. Hypertension Hyperlipidemia Anxiety/depression Labial Cysts Hospital course: Patient is a pleasant 69-year-old female with a past medical history of daily alcohol use, chronic hypokalemia, hypertension, hyperlipidemia, and anxiety with depression. Presented to the emergency department on 08/29/2024 with a chief complaint of abdominal pain accompanied by nausea and vomiting. Upon arrival to our facility, patient underwent evaluation in the emergency department. Vital signs upon arrival show blood pressure 126/80, heart rate 70, respiratory rate 16, temp 98.2 F, and SpO2 of 98% on room air. Labs were completed and reviewed. CBC showing leukocytosis with WBC count of 13.1. BMP showing hypokalemia with potassium of 2.7 and mild prerenal azotemia with BUN of 18. Blood glucose was 108. Liver profile showing elevated ALT of 41 and alkaline phosphatase of 129. Troponin was negative at less than 0.012. Amylase was 160 and lipase was 1574. Abdominal x-ray showing nonobstructive bowel gas pattern. EKG showing normal sinus rhythm at 61 bpm. Patient admitted under our services for acute alcoholic pancreatitis. After admission patient reporting bilateral labial wound/irritation and technical support coordinator consulted for evaluation. Gynecology evaluating stating normal labial cysts. Patient was evaluated by technical support coordinator reporting normal labial inclusion cysts and no need for further workup at this time. Patient was treated for acute alcoholic pancreatitis. She was educated on cessation of any and all alcohol use. She was treated with aggressive IV fluid hydration and diet was slowly advanced. Patient tolerating low-fat diet at this time and is medically optimized for discharge. Patient instructed she will need to follow-up outpatient with center human resources manager in 1 to 2 weeks and recommend follow-up with PCP in 1 to 2 days. Physical exam: Vital signs reviewed and stable. General: Nontoxic, no distress and appears stated age. Derm: Skin warm and dry, normal coloration for ethnicity. Head: Atraumatic, normocephalic and symmetric. Eyes: EOM's intact, no lid lag, and anicteric sclera Mouth: no lip lesions, mucus membranes moist Cardiovascular: regular rate and rhythm with normal S1S2, no murmur, positive posterior tibial pulses bilaterally, and cap refill < 2 seconds. Lungs: Respirations even, regular, and unlabored on room air. Lungs CTA bilaterally, no rhonchi, no rales, no wheezing, and no accessory muscle usage. Abdominal: soft, mild tenderness to epigastric region on palpation, no guarding, no appreciable organomegaly Ext: Movement and sensation intact. No gross muscle atrophy, no edema, no contractures Neuro: Speech clear, face symmetrical and CN II-XII grossly intact with no noted focal neuro deficits Psych: Alert and oriented to person, place, time, and situation. Appropriate and pleasant affect. A total of 34 minutes of time were spent preparing this complex discharge summary. Pt was discharged on 09/02/2024 at 1:48 PM. Patient was seen independently by Nurse Practitioner. This document was prepared using [employer] dictation software. Please allow for errors in test puller while rare they do occur. Thaddeus Guzman NP rendered care for this patient independently, reviewed the findings and plan as documented in the note above. I did not physically speak with or examine the patient on this date. Patient Condition at Discharge: Stable Plan - Discharge Summary Discharge Rx Participant: No New Discharge Prescriptions: New Pantoprazole [Protonix] 40 mg PO [facility] Days #30 tab Continue amLODIPine [Norvasc] 5 mg PO DAILY Triamterene/Hydrochlorothiazid [Triamterene-Hctz 75-50 mg Tab] 1 tab PO DAILY Pravastatin Sodium [Pravachol] 40 mg PO HS Escitalopram [Lexapro] 20 mg PO DAILY Cholestyramine (with Sugar) [Cholestyramine Packet] 4 gm PO BID Discharge Medication List Pravastatin Sodium [Pravachol] 40 mg PO HS 08/03/20 [History] Triamterene/Hydrochlorothiazid [Triamterene-Hctz 75-50 mg Tab] 1 tab PO DAILY 08/03/20 [History] amLODIPine [Norvasc] 5 mg PO DAILY 08/03/20 [History] Cholestyramine (with Sugar) [Cholestyramine Packet] 4 gm PO BID 08/30/24 [History] Escitalopram [Lexapro] 20 mg PO DAILY 08/30/24 [History] Pantoprazole [Protonix] 40 mg PO [id number] 30 Days #30 tab 09/02/24 [Rx] Follow up Appointment(s)/Referral(s): Blanca Galindo MD [STAFF PHYSICIAN] - 1 Week () Navarro Rhodes DO [Primary Care Provider] - 1-2 days (please call to roxie russ a follow up appointment) Patient Instructions/Handouts: Pancreatitis (DC), Low Fat Diet (DC), Hypokalemia (DC), Epidermal Inclusion Cysts (ED) Activity/Diet/Wound Care/Special Instructions: Activity: As tolerated. Take breaks as needed. Diet: Low-fat diet. Special Instructions: Take all of your medications as directed and remember to keep all of your doctor's appointments and follow-up as needed. Strongly recommend avoidance of any and all alcohol use. Thank you for allowing us to participate in your care, it was truly a pleasure having you for our patient!!! Discharge Disposition: HOME SELF-CARE
--- NOTE | 2024-09-02 14:01 | P.PN ---
Subjective Progress Note Date: 09/02/24 Hospital course: Patient is a pleasant 69-year-old female with a past medical history of daily alcohol use, chronic hypokalemia, hypertension, hyperlipidemia, and anxiety with depression. Presented to the emergency department on 08/29/2024 with a chief complaint of abdominal pain accompanied by nausea and vomiting. Upon arrival to our facility, patient underwent evaluation in the emergency department. Vital signs upon arrival show blood pressure 126/80, heart rate 70, respiratory rate 16, temp 98.2 F, and SpO2 of 98% on room air. Labs were completed and reviewed. CBC showing leukocytosis with WBC count of 13.1. BMP showing hypokalemia with potassium of 2.7 and mild prerenal azotemia with BUN of 18. Blood glucose was 108. Liver profile showing elevated ALT of 41 and alkaline phosphatase of 129. Troponin was negative at less than 0.012. Amylase was 160 and lipase was 1574. Abdominal x-ray showing nonobstructive bowel gas pattern. EKG showing normal sinus rhythm at 61 bpm. Patient admitted under our services for acute alcoholic pancreatitis. After admission patient reporting bilateral labial wound/irritation and waterproofing machine operator consulted for evaluation. Gynecology evaluating stating normal labial cysts. Physical exam: Patient seen and fully evaluated at bedside this morning. Patient tolerating full liquid diet will advance to low-fat diet. Discussed with patient if she tolerates low-fat diet we will plan on discharging home later today. Patient denies having any nausea or vomiting and reports occasional intermittent epigastric/abdominal pain after eating but then resolves. Also discussed with patient that she will need to follow-up outpatient with senior site manager after discharge and again educated her on the importance of alcohol cessation. Vital signs reviewed and stable. General: Nontoxic, no distress and appears stated age. Derm: Skin warm and dry, normal coloration for ethnicity. Head: Atraumatic, normocephalic and symmetric. Eyes: EOM's intact, no lid lag, and anicteric sclera Mouth: no lip lesions, mucus membranes moist Cardiovascular: regular rate and rhythm with normal S1S2, no murmur, positive posterior tibial pulses bilaterally, and cap refill < 2 seconds. Lungs: Respirations even, regular, and unlabored on room air. Lungs CTA bilaterally, no rhonchi, no rales, no wheezing, and no accessory muscle usage. Abdominal: soft, mild tenderness to epigastric region on palpation, no guarding, no appreciable organomegaly Ext: Movement and sensation intact. No gross muscle atrophy, no edema, no contractures Neuro: Speech clear, face symmetrical and CN II-XII grossly intact with no noted focal neuro deficits Psych: Alert and oriented to person, place, time, and situation. Appropriate and pleasant affect. Assessment and Plan of Care: Acute alcoholic pancreatitis Daily alcohol use/abuse Hypomagnesemia Normocytic anemia Leukocytosis, resolved Hypokalemia, resolved Elevated liver enzymes, secondary to daily alcohol use -Patient tolerating clear liquid diet was advanced to full liquid diet this morning and IV fluids were decreased to 75 cc/h with lactated Ringer's. -Continue symptomatic care and pain management with Tylenol 650 mg p.o. every 6 hours as needed for mild pain/fever, Toradol 15 mg IVP every 6 hours as needed for moderate pain, and morphine 4 mg IVP every 4 hours as needed for severe pain. -Continue Zofran 4 mg IVP every 8 hours as needed for nausea and vomiting. -GI prophylaxis with Protonix. -DVT prophylaxis with Lovenox. -Continue monitoring of CIWA scores and patient to be medicated with Ativan 0.5 mg every 4 hours as needed for CIWA score of 4-5, Ativan 1 mg every 4 hours for CIWA score of 6-7, Ativan 2 mg every 3 hours CIWA score of 8-9, and Ativan 2 mg every 2 hours forr CIWA score of 10 or greater. -Thiamine 100 mg daily, and Multivitamin daily, and Folate 1 mg daily -Continued close monitoring of electrolytes and replace as needed. -Had long discussion with the patient and educated her regarding importance of alcohol cessation. Hypertension -Hold triamterene-HCTZ 75-50 mg daily due to need for aggressive IV fluid hydration and pt to continue amlodipine 5 mg daily Hyperlipidemia -Continue home Pravachol 40 mg nightly Anxiety/depression -Continue home escitalopram 20 mg daily. Labial Cysts -Patient was evaluated by waterproofing machine operator reporting normal labial inclusion cysts and no need for further workup at this time. Data and imaging reviewed: -Morning labs reviewed. CBC showing stable hemoglobin 10.6, WBC count of 0.13, platelet count of 233. BMP showing mild hyperchloremia with chloride of 110 and hypokalemia with potassium of 3.2. Magnesium 2.0.. Blood glucose 96. -Vital signs reviewed blood pressure 130/70, heart rate 55, respiratory rate 16, temp 98.8 F, and SpO2 of 99% on room air. CODE STATUS: Full code DVT prophylaxis: Lovenox Anticipated discharge date: Likely later this afternoon if patient tolerates lunch. Anticipated discharge place: Home Patient was seen independently by Nurse Pracitioner. This document was prepared using [employer] dictation software. Please allow for errors in vascular physician, while rare they do occur. Thaddeus Guzman NP rendered care for this patient independently, reviewed the findings and plan as documented in the note above and agree with plan. I did n ot physically speak with or examine the patient on this date. Objective - Vital Signs Vital signs: Vital Signs Temp 98.8 F 09/02/24 07:30 Pulse 55 L 09/02/24 07:30 Resp 16 09/02/24 07:30 BP 130/70 09/02/24 07:30 Pulse Ox 99 09/02/24 07:30 FiO2 Intake & Output 09/01/24 09/02/24 09/02/24 18:59 06:59 18:59 Output Total 540 Balance -540 Output: Urine 540 Other: Voiding Method Toilet Toilet # Voids 3 # Bowel Movements 2 - Labs CBC & Chem 7: 09/02/24 05:10 09/02/24 05:10 Labs: Abnormal Lab Results - Last 24 Hours (Table) 09/01/24 09/01/24 Range/Units 05:05 05:05 RBC 3.33 L (4.10-5.20) X 10*6/uL Hgb 10.3 L (12.0-15.0) g/dL Hct 31.0 L (37.2-46.3) % Chloride 110 H (96-109) mmol/L BUN 4.9 L (9.0-27.0) mg/dL BUN/Creatinine Ratio 8.17 L (12.00-20.00) Ratio Calcium 8.4 L (8.7-10.3) mg/dL Magnesium 1.4 L (1.5-2.4) mg/dL Total Protein 5.1 L (6.2-8.2) g/dL Albumin 3.2 L (3.8-4.9) g/dL
[2024-09-02 14:14] VITALS: BP 126/78; PULSE 64; RESP 16
== END 2024-09-02 14:55 | disposition home or self-care (01) | DRG 440 ==
LOC: EC 21:41 → 4SSUR 08-30 02:48 → 5NMEDONC 08-30 04:14
PROVIDERS: ADMIT Internal Medicine; ATTEND Internal Medicine
DX: K85.20 Alcohol induced acute pancreatitis without necrosis or infection (principal); K44.9 Diaphragmatic hernia without obstruction or gangrene; G89.29 Other chronic pain; E87.6 Hypokalemia; F32.A Depression, unspecified; E78.5 Hyperlipidemia, unspecified; F41.9 Anxiety disorder, unspecified; I10 Essential (primary) hypertension; R74.01 Elevation of levels of liver transaminase levels; E87.5 Hyperkalemia; F10.10 Alcohol abuse, uncomplicated; L72.0 Epidermal cyst; E83.42 Hypomagnesemia; D64.9 Anemia, unspecified; Z86.718 Personal history of other venous thrombosis and embolism; Z87.891 Personal history of nicotine dependence
CPT/HCPCS: 36415; 71046; 74018; 80048; 80053; 82150; 83690; 83735; 84478; 84484; 85025; 85027; 93005; 96365; 96366; 96375; 99285

== ENCOUNTER → 2024-09-23 | Outpatient (CLI) | payer MEDICARE ==
[2024-09-23 11:46] LABS: African American GFR (CKD) 83 (>60 ml/min/1.73 sqM); Blood Urea Nitrogen 16 mg/dL (7-17); Non-African American GFR(CKD) 72 (>60 ml/min/1.73 sqM)
--- NOTE | 2024-09-23 13:49 | CT ---
EXAMINATION TYPE: CT abdomen pelvis w con CT DLP: 629.80 mGycm, Automated exposure control for dose reduction was used. DATE OF EXAM: 09/23/2024 1:40 PM COMPARISON: CT abdomen and pelvis 02/01/2024 CLINICAL INDICATION:Female, 69 years old with history of R63.4 Abnormal weight loss; recent pancreati tis. TECHNIQUE: Standard CT of the abdomen and pelvis following the administration of 100 cc of Isovue 3 00 IV contrast material and oral contrast. Coronal and sagittal reformats were performed. FINDINGS: LOWER CHEST: Unremarkable ABDOMEN LIVER: Focal fatty infiltration adjacent to the falciform ligament in segment IVb GALLBLADDER AND BILE DUCTS: The gallbladder is surgically absent. No biliary ductal dilatation. PANCREAS: Unremarkable. No pancreatic calcifications. No pancreatic ductal dilatation. No surrounding inflammatory changes. The pancreas enhances homogeneously. No surrounding fluid collections. SPLEEN: Unremarkable. ADRENAL GLANDS: Unremarkable. KIDNEYS AND URETERS: No evidence of hydronephrosis. No left renal calculi. Nonobstructive right renal lower pole 2 mm calculus. Couple of right renal simple cysts measuring up to 1.7 cm. The kidney is e nhanced symmetrically. Contrast is demonstrated within both collecting systems on the delayed phase. No evidence for vascular complication. PELVIS BLADDER: Incompletely distended but grossly unremarkable. REPRODUCTIVE: Unremarkable. ABDOMEN & PELVIS STOMACH AND BOWEL: Small hiatal hernia. Couple of mid to distal duodenal diverticula. Enteric contras t reaches the ascending colon. Mild colonic stool. No focal bowel wall thickening or surrounding infl ammatory changes. No evidence of bowel obstruction. PERITONEUM: No evidence of pneumoperitoneum or free fluid. VASCULATURE: Mild moderate atherosclerotic calcifications are present throughout the abdominal aorta and its branches. No evidence of aortic aneurysm. Couple pelvic phleboliths. MUSCULOSKELETAL: No acute osseous abnormalities. Degenerative disc disease at L5-S1. LYMPH NODES: No evidence for lymphadenopathy. SOFT TISSUE/ABDOMINAL WALL: Unremarkable IMPRESSION: 1. No CT evidence for acute abdominal/pelvic process. Unremarkable appearance of the pancreas withou t surrounding inflammatory changes or fluid collections. 2. Nonobstructive right renal calculus. [facility], , 09/23/2024 1:47 PM
== END | disposition home or self-care (01) ==
LOC: RADCTMAIN 11:07
PROVIDERS: ATTEND Internal Medicine Gastroenterology
DX: N20.0 Calculus of kidney (principal); R63.4 Abnormal weight loss; Z87.19 Personal history of other diseases of the digestive system
CPT/HCPCS: 82565; 84520; 74177; 36415; Q9967